=== PATIENT | male | born 1955 | race Caucasian/White ===

== ENCOUNTER 2021-03-18 13:12 | Inpatient (IN) | payer MEDICARE, OTHER, SELFPAY ==
[2021-03-18] VITALS (16 sets, daily range): BP systolic 118–150; BP diastolic 73–88; PULSE 74–95; RESP 14–28; TEMP 36.6–37.3; O2SAT 92–100; BMI 30.7; BMI 32.1
--- NOTE | 2021-03-18 13:40 | ED.VIS.FALL ---
HPI HPI - Fall History of Present Illness Chief Complaint: Fall Informant: patient Narrative Narrative: Planing of right hip pain. He was playing [employer]. He turned to the right and his left leg slipped out from under him. He landed directly on his right hip. He states he did not hit his head. He is not on blood thinners. He could not get up because of the pain. He states the only area that hurts is his right hip. Nothing else is sore on him. He has never had surgery or problems there. Motion makes it worse and rest makes it better. He has not yet gotten anything for pain but would like something. [facility] Medical History Diabetes High cholesterol Hypertension Shoulder fracture Home Medications amlodipine 10 mg PO DAILY 03/18/21 [History Last Taken 03/18/21] cholecalciferol (vitamin D3) [Vitamin D3] 175 mcg PO DAILY 03/18/21 [History Last Taken 03/18/21] dapagliflozin [Farxiga] 10 mg PO DAILY 03/18/21 [History Last Taken 03/18/21] diphenhydramine HCl 50 mg PO QHS 03/18/21 [History Last Taken 03/17/21] dulaglutide [Trulicity] 0.75 mg SUBCUT QWEEK 03/18/21 [History Last Taken 03/18/21] fenofibrate 160 mg PO DAILY 03/18/21 [History Last Taken 03/18/21] glipizide 5 mg PO BID 03/18/21 [History Last Taken 03/18/21] metformin 1,000 mg PO BID 03/18/21 [History Last Taken 03/18/21] niacin 500 mg PO QHS 03/18/21 [History Last Taken 03/17/21] omega-3 fatty acids [Fish Oil] 1,000 mg PO BID 03/18/21 [History Last Taken 03/18/21] pioglitazone 30 mg PO DAILY 03/18/21 [History Last Taken 03/18/21] prasterone (dhea)-calcium carb [DHEA] 0.5 tab PO DAILY 03/18/21 [History Last Taken 03/18/21] ramipril 10 mg PO DAILY 03/18/21 [History Last Taken 03/18/21] simvastatin 20 mg PO DAILY 03/18/21 [History Last Taken 03/18/21] sitagliptin [Januvia] 100 mg PO DAILY 03/18/21 [History Last Taken 03/18/21] Allergy/AdvReac Type Severity Reaction Status Date / Time No Known Allergies Allergy Verified 03/18/21 13:27 Family History Mother Cancer Hx breast CA. Father Heart disease CHF (congestive heart failure) Valvular heart disease Surgical History H/O rotator cuff surgery Social History household members: spouse Smoking Status: Former smoker how long ago did patient quit smoking: Quit 10 years prior, smoked 1/3 ppd since teen. alcohol intake: current alcohol intake frequency: a few times a month substance use type: marijuana ROS ROS ED Constitutional Constitutional ED: Denies fever(s) Eyes Eyes: Denies blurry vision or change in vision ENT ENT ED: Reports other Details: No facial or head injury. Cardiovascular Cardiovascular: Denies chest pain or palpitations Respiratory/Chest Respiratory/Chest: Denies dyspnea Gastrointestinal Gastrointestinal: Denies nausea or vomiting Musculoskeletal Musculoskeletal: Reports other Details: See history of present illness. ; Denies back pain or neck pain Integumentary Denies rash Neurologic Neurologic: Denies headache(s), paresthesias or weakness Endocrine Endocrinology: Denies polydipsia or polyuria Hematologic/Lymphatic Hematologic/Lymphatic: Denies easy bleeding or easy bruising Allergic/Immunologic Allergic/Immunologic ED: Denies mouth swelling or urticaria EXAM Physical Exam Const Vital Signs: 03/18/21 13:13 03/18/21 13:26 03/18/21 14:34 Temperature 98 F Temperature Source Temporal Pulse Rate 95 Respiratory Rate 20 H Respiratory Effort Normal Non-Labored Blood Pressure 126/76 H Blood Pressure Mean 92 Pulse Ox 92 Oxygen Delivery Method Room Air Nasal Cannula Oxygen Flow Rate (L/min) 2 03/18/21 14:54 03/18/21 15:16 03/18/21 15:36 Temperature Temperature Source Pulse Rate 81 75 74 Respiratory Rate 28 H 19 H 16 Respiratory Effort Blood Pressure 150/73 H 118/88 H Blood Pressure Mean 98 98 Pulse Ox 95 98 98 Oxygen Delivery Method Nasal Cannula Nasal Cannula Nasal Cannula Oxygen Flow Rate (L/min) 2 5 5 Positive well nourished and well developed General Appearance ED: well developed and NAD HEENT Reports normocephalic atraumatic; Negative for contusion Eyes PERRL and EOMs intact bilaterally Neck no lymphadenopathy and supple General: Negative for tenderness Chest Wall inspection of chest normal and palpation of chest normal Resp normal respiratory effort and clear to auscultation bilaterally Cardio regular rate and regular rhythm GI non-tender and non-distended Back/Spine no CVA tenderness Extremity Extremity Narrative: Patient's right leg is up on a pillow. Motion does cause pain in the right hip/right groin area. He has some tenderness there. No gross rotational deformity. Because of the knee is propped up, it is hard to assess for shortening. Distal pulses sensation are normal. No tenderness lower in the thigh knee leg or foot. Neuro oriented x3 Sensorium / Orientation: alert Psych mental status grossly normal Skin Lesions: no lesions Rashes: no rashes Trauma: Negative for abrasion or laceration MDM MDM MDM Narrative Medical decision making narrative: Patient had his x-ray done. I had not yet looked at this film. I was urgently called in the room. Patient had stopped breathing and lost pulse. He had turned blue. He was a bit diaphoretic. CPR was done for a brief period of time of approximately 30 seconds. We noticed that he was having motion come back. We stop CPR. At that point, he had a pulse. Blood pressure was 90 but then rechecked and was up to 140. He states he was feeling okay. He does realize that he went out for short period of time. This did occur after morphine. He has never had morphine before. He also did get Zofran. He also started Trulicity for the first time this morning. We checked his blood glucose and it was in the 90s. Most likely, the patient had a reaction with morphine that caused shallow breathing low blood pressure and then the transient arrest that we saw. However, at this time he will be kept so on the monitor, we will do EKG blood work troponin. He will be reassessed again. Patient had a a second episode of this. It was the same process. His heart rate was found to bradycardia down and then have a long sinus pause. CPR was transiently done again for about 20 seconds. His heart rate came back. He woke up rapidly. His blood pressure is back to normal. He received Narcan. He is also received IV fluids. He has now been stable for quite some time. I discussed the case with cardiology, Dr. Tipton. He feels that this is likely a combination of dehydration, morphine and pain causing a very significant vagal event. This does fit the clinical picture of Burrell scenario. We have reevaluated the patient multiple times. He has no abdominal pain back pain or flank pain. No trouble breathing. He has excellent pulses. He is not developing swelling or bruising. I would like to get a CT scan of his abdomen pelvis just to make sure were not seeing any surprises. But I want him to stay in the department for a short time to make sure he is stable for a while. I did discuss case with the hospitalist who is also seen him. At this point we will get him over to CT. So far his CBC coag studies troponin are negative. Magnesium is normal. Electrolytes are normal other than signs of some elevated creatinine that might be mild dehydration. Got back CT of abdomen pelvis. There is no sign of bony or hip acute process. There are some arthritic changes. There was a focal area of small bowel loop prominence with a local area of narrowing or stone seen. This could correlate with intussusception. I went back and talked to the patient. He has absolutely 0 abdominal pain he is wide awake and alert. He has no abdominal tenderness. He has no symptoms at all anywhere in the area of that finding on CT. His pain is in the proximal thigh just below the inguinal ligament on the right. If he moves it hurts. If he puts a little gentle pressure on it it actually feels better. This seems to be myofascial in origin. It seems close to rectus femorris. Lab Data Attestation: I reviewed the patient's lab results. Labs: Laboratory Results - last 24 hr 03/18/21 13:20 Blood Type A POSITIVE Antibody Screen NEGATIVE Radiography Diagnostic Testing: Clinical Impression(s) from Imaging Studies Hip/Pelvis X-Ray 03/18/21 13:50 IMPRESSION: Degenerative changes, no acute osseous abnormality seen. Electronically Signed: Andrea Chaparro MD at 14:08 EST Tel , Service support , Chest X-Ray 03/18/21 14:50 EKG Initial EKG: Comments: EKG done status post arrest showing a normal sinus rhythm without ectopy. No acute ST elevation or depression. Isolated T wave inversion in lead III which is normal variant. CO interval QRS duration and QTc are normal. Critical Care Time Critical Care Time: Yes Critical care time (excluding procedures): 30-74 minutes, Discussing w/Patient &/or Family/Lubricating Specialist, Discussing w/Consultants, Arranging Admission or Transfer, Performing Direct Patient Care at Bedside and - (Direct CPR by provider, multiple reassessments, change in therapy, consultations, charting, 48 minutes CCT) Discharge Plan Dx/Rx/DC Orders Clinical Impression: Fall from slipping, Right groin pain, Bradycardic cardiac arrest Disposition Disposition: Acute Care Hospital [facility] Discharge Date/Time: 03/18/21 18:09
[2021-03-18 13:46] LABS: Bedside Glucose 154 mg/dL (70-110)
[2021-03-18] MEDS: Ondansetron 4 MG/2 ML Vial IV ×2 (13:46→15:31)
[2021-03-18] MEDS: Morphine 4 MG/ML Syringe IV (13:46)
--- NOTE | 2021-03-18 13:50 | RAD_ITS ---
INDICATION: trauma EXAMINATION/TECHNIQUE: X-RAY - RIGHT XR Hip Unilateral with Pelvis when performed; 2-3 Views 3 VIEWS COMPARISON: None. FINDINGS: SOFT TISSUES: No soft tissue swelling or gas. No radiopaque foreign body. BONES/JOINTS: No acute fracture or subluxation.. Unremarkable alignment. Mild degenerative changes are seen in the hip joints, prominent degenerative changes visualized at the lumbosacral junction. No sclerotic or destructive changes observed. RAD/HIP, UNI W/ Pelvis 2-3 Views IMPRESSION: Degenerative changes, no acute osseous abnormality seen. Electronically Signed: Andrea Chaparro MD at 14:08 EST Tel , Service support ,
--- NOTE | 2021-03-18 14:26 | ED.RN ---
PT WENT UNRESPONSIVE AT 1423PT WAS APNEIC, NO PULSE, COMPRESSIONS STARTED. DR. WYNN AT BEDSIDE. PT WOKE UP AT 1424. PT NOW A+0X3 DIAPHORETIC. BG 97. PT SR RHYTHM ON THE MONITOR HR 77, RR 20, SPO2 97% 4LNC, BP 143/77.
--- NOTE | 2021-03-18 14:29 | EKG12_ITS ---
Test Reason : NO PULSE Blood Pressure : / mmHG Vent. Rate : 074 BPM Atrial Rate : 074 BPM P-R Int : 148 ms QRS Dur : 092 ms QT Int : 400 ms P-R-T Axes : 058 -16 024 degrees QTc Int : 444 ms Normal sinus rhythm Normal ECG Confirmed by SHRUTHI DUNCAN, MILLIE ([id number]), industrial editor ERASMO MANCIA ([id number]) on 03/24/2021 10:23:51 AM Referred By: BK Confirmed By:MILLIE HAWKINS MD
[2021-03-18 14:30] LABS: Bedside Glucose 97 mg/dL (70-110)
--- NOTE | 2021-03-18 14:46 | ED.RN ---
AT 1445 PT LAID FLAT FOR XRAY, PT WENT BRADYCARDIC IN 30'S PALE AND DIAPHORETIC AGAIN, PT ASYSTOLE ON MONITOR, COMPRESSIONS STARTED. DR. WYNN AT BEDSIDE. PT WOKE UP AGAIN, NOW A+OX3. BP 150/73, HR 91, RR 26, 98%. 2MG NARCAN GIVEN THROUGH LEFT AC BY Joseph ELLISON RN.
[2021-03-18 14:47] LABS: Absolute Lymphocyte Count 0.61 X10^3/uL (0.83-4.51); Absolute Neutrophil Count 4.4 X10^3/uL (2.0-7.7); Basophil# 0.02 X10^3/uL; Basophil% 0.4 % (0-1); Eosinophil# 0.01 X10^3/uL; Eosinophils% 0.2 % (0-5); Hematocrit 43.6 % (40-54); Lymphocyte # 0.61 X10^3/ul (0.83-4.51); Lymphocyte % 11.1 % (19-41); Mean Corp Hgb Conc 34.4 g/dL (32-36); Mean Corpuscular Hgb 30.6 pg (27.0-32.0); Mean Platelet Vol. 10.1 fl (6.2-12.0); Monocyte# 0.46 X10^3/uL; Monocyte% 8.4 % (0-10); NRBC Flagged by Analyzer 0 % (0-5); Neutrophil # 4.36 X10^3/uL (2.7-7.7); Neutrophil % 79.4 % (47-70); Platelet Count 203 K/mm3 (150-450); RBC Distribution Width CV 12.8 % (11.6-14.6); RBC Distribution Width SD 42.1 fl (35.1-43.9); White Blood Count 5.5 K/mm3 (4.4-11.0)
[2021-03-18] MEDS: Naloxone 2 MG/2 ML Syringe IV (14:49)
--- NOTE | 2021-03-18 14:50 | RAD_ITS ---
INDICATION: chest pain EXAMINATION/TECHNIQUE: X-RAY - XR Chest 1 View COMPARISON: None. FINDINGS: LINES/DEVICES: None. LUNGS: Peribronchial cuffing and mild bilateral hilar prominence is visualized, prominence of the bronchovascular markings is visualized but no evidence of focal lung infiltrate or consolidation. No evidence of pneumothorax or pleural effusion is seen. MEDIASTINUM AND CARDIOVASCULAR STRUCTURES: Cardiac silhouette not enlarged. Central airways and mediastinal contour are unremarkable. BONES AND SOFT TISSUES: Unremarkable. IMPRESSION: Peribronchial cuffing and mild bronchovascular prominence but no evidence of focal lung opacification of acute cardiopulmonary disease. Electronically Signed: Andrea Chaparro MD at 15:19 EST Tel , Service support , RAD/Chest 1 View (Portable)
--- NOTE | 2021-03-18 14:55 | CM.ED ---
SW Note Referral Source : Code Blue Referral Reason: Code Blue SW responded to Code Blue 2x. Provided emotional support to Lisa. No concerns or issues voiced. SW remains available if needs arise. Plan: Emotional support Haydee COHEN
[2021-03-18 15:03] LABS: Anion Gap 9 (5-15); BUN 15 mg/dL (7-18); BUN/Creat Ratio 9.6 RATIO (10-20); Calcium,Total 9.9 mg/dL (8.5-10.1); Chloride 106 mmol/L (98-107); Creatinine, Serum 1.56 mg/dL (0.70-1.30); EST Glomerular Filtration Rate 48 mL/min (>60); Est Glom Filt Rate - Afr Amer 58 mL/min (>60); Estimated Creatinine Clearance 43.55 ml/min; Glucose 272 mg/dL (74-106); Magnesium 1.9 mg/dL (1.6-2.6); Potassium 4.4 mmol/L (3.5-5.1); Sodium Level 140 mmol/L (136-145); Troponin-I HS 6 pg/mL (3.0-78.0)
--- NOTE | 2021-03-18 15:04 | CHAPLAIN ---
Type of Pastoral Visit ___ Initial Visit ___ Follow-up Visit ___ On-call Visit ___ General Patient Visit ___ Spiritual Assessment ___ Family Conference ___ Bereavement ___ Rapid Response _x__ Code Blue ___ Other (describe below) Pastoral Care Referral From ___ Patient ___ Family ___ Nurse ___ Physician ___ Automotive Project Engineer ___ Vb Net Developer _x__ Other (describe below) Sacrament/Intervention _x__ Active listening ___ Anointing ___ Muslim ___ Bereavement ___ Communion ___ Brittani exploration ___ ___ Life review ___ Prayer ___ Reconciliation ___ Sacrament of Sick _x__ Supportive presence ___ Wedding ___ Other (describe below) Pastoral Comments responded two times to two different code blue announcements for this same patient; first time the patient was already alert and talking; entered room to offer support to patient and his spouse; pt acknowledged pain from an injury but was responsive to questions; spouse was at bedside and did not seek extra support at that time; the second code call came soon after and a second trip to ED discovered patient had again revived and was been attending to by medical team; spouse again at bedside; offer of support to staff
--- NOTE | 2021-03-18 15:31 | NURSING ---
NO OLD EKGS
[2021-03-18] MEDS: 0.9% Normal Saline 1,000 ML 999 ML IV (15:32)
--- NOTE | 2021-03-18 15:42 | HP.PCM.HOS_ITS ---
HPI - General General Date of Admission: 03/18/21 Date of Service: 03/18/21 Chief Complaint: Fall during racketball, Cardiac arrest in the ED. HPI Narrative The patient is a 65 y/o M w/ PMHx: Obesity, HTN, HLD, Diabetes mellitus type II who presents to the [facility] ED on 03/18/21 with history of noting to have been stepping to the right and slipped falling onto his right hip while he was playing racketball with ongoing hip pain following prompting ED evaluation. He noted intractable 10 out of 10 severe sharp pain to the right groin and upper thigh region with any movement of the right lower extremity with intermittent improvement and recurrent onset with any attempted movement or palpation. Work- up in the ED included initially T 98, heart rate 95, BP 126/76, respiratory rate 20, 92% on room air with transient reported cardiac arrest with most recent vital signs heart rate 75, BP 118/88, respiratory rate 19, 98% on 5 L nasal cannula, CBC with WBC 5.5, hemoglobin 15, platelet 203 with lymphopenia, BMP with BUN/creatinine 15/1.56, glucose 272, magnesium 1.9, high-sensitivity cardiac troponin 6, chest x-ray with peribronchial cuffing and mild perivascular prominence but no evidence of focal lung opacification or acute cardiopulmonary findings, plain film of the right hip and pelvis with degenerative changes with no acute osseous abnormality, EKG with sinus rhythm with no acute evidence of ischemia. ED physician had been urgently called into the room secondary to patient loss of pulse and hypoxia noted to turn blue with diaphoresis with initiation of CPR for approximately 30 seconds with spontaneous movement with pulse at that point with blood pressure noted to be systolics in the 90 however upon recheck systolic was up to 140 and reported that he had been feeling fine and was unaware of these events. Patient had recently received morphine prior to this and had never received it prior. He also notes that he recently started Trulicity for the first time on day of presentation. Telemetry with onset bradycardia with eventual significant pause prior to cardiopulmonary arrest. ED discussed case with Cardiology who noted likely severe vagal episode exacerbated by the morphine. Patient was given a dose of narcan. He then had a second episode of worsening bradycardia and pause again following his initial event and only 20-30 seconds of CPR was necessary with resolution following. He has had no marked bradycardia since. [facility] Medical History (Updated 03/18/21 @ 18:[address] Zeynep Correia MD) Diabetes High cholesterol Hypertension Shoulder fracture Home Medications amlodipine 10 mg PO DAILY 03/18/21 [History Last Taken Unknown] cholecalciferol (vitamin D3) [Vitamin D3] 175 mcg PO DAILY 03/18/21 [History Last Taken Unknown] dapagliflozin [Farxiga] 10 mg PO DAILY 03/18/21 [History Last Taken Unknown] diphenhydramine HCl 25 mg PO BID 03/18/21 [History Last Taken Unknown] dulaglutide [Trulicity] 0.75 mg SUBCUT QWEEK 03/18/21 [History Last Taken Unknown] fenofibrate 160 mg PO DAILY 03/18/21 [History Last Taken Unknown] glipizide 5 mg PO BID 03/18/21 [History Last Taken Unknown] metformin 1,000 mg PO BID 03/18/21 [History Last Taken Unknown] niacin 500 mg PO DAILY 03/18/21 [History Last Taken Unknown] omega-3 fatty acids [Fish Oil] 1,000 mg PO BID 03/18/21 [History Last Taken Unknown] pioglitazone 30 mg PO DAILY 03/18/21 [History Last Taken Unknown] prasterone (dhea)-calcium carb [DHEA] 0.5 tab PO DAILY 03/18/21 [History Last Taken Unknown] ramipril 10 mg PO DAILY 03/18/21 [History Last Taken Unknown] simvastatin 20 mg PO DAILY 03/18/21 [History Last Taken Unknown] sitagliptin [Januvia] 100 mg PO DAILY 03/18/21 [History Last Taken Unknown] Allergy/AdvReac Type Severity Reaction Status Date / Time No Known Allergies Allergy Verified 03/18/21 13:27 Family History (Updated 03/18/21 @ 18:[address] Zeynep Correia MD) Mother Cancer Hx breast CA. Father Heart disease CHF (congestive heart failure) Valvular heart disease Surgical History (Updated 03/18/21 @ 18:[address] Zeynep Correia MD) H/O rotator cuff surgery Social History (Updated 03/18/21 @ 18:[address] Zeynep Correia MD) household members: spouse Smoking Status: Former smoker how long ago did patient quit smoking: Quit 10 years prior, smoked 1/3 ppd since teen. alcohol intake: current alcohol intake frequency: a few times a month substance use type: marijuana ROS ROS Narrative Admission Review of Systems: CONSTITUTIONAL: No weight loss, fever, chills, + weakness or fatigue. HEENT: Eyes: No visual loss, blurred vision, double vision or yellow sclerae. Ears, Nose, Throat: No hearing loss, sneezing, congestion, runny nose or sore throat. SKIN: No rash or itching, lesions, wounds. CARDIOVASCULAR: No chest pain, chest pressure or chest discomfort, palpitations, edema, orthopnea, syncopal events. RESPIRATORY: No shortness of breath, cough or sputum, wheezing, hemoptysis. GASTROINTESTINAL: No anorexia, nausea, vomiting or diarrhea, abdominal pain, melena, BRBPR. GENITOURINARY: No dysuria, frequency, urgency or retention. NEUROLOGICAL: No headache, dizziness, syncope, paralysis, ataxia, numbness or tingling in the extremities, focal weakness, change in bowel or bladder control, seizure. MUSCULOSKELETAL: + muscle, back pain, joint pain or stiffness. HEMATOLOGIC: No anemia, bleeding or bruising. LYMPHATICS: No enlarged nodes. No history of splenectomy. PSYCHIATRIC: No history of depression or anxiety. ENDOCRINOLOGIC: No reports of sweating, cold or heat intolerance. No polyuria or polydipsia. ALLERGIES: No history of asthma, hives, eczema or rhinitis. Vital Signs Vital Signs Vital Signs: 03/18/21 13:13 03/18/21 13:26 03/18/21 14:34 Temperature 98 F Temperature Source Temporal Pulse Rate 95 Respiratory Rate 20 H Respiratory Effort Normal Non-Labored Blood Pressure 126/76 H Blood Pressure Mean 92 Pulse Ox 92 Oxygen Delivery Method Room Air Nasal Cannula Oxygen Flow Rate (L/min) 2 03/18/21 14:54 03/18/21 15:16 03/18/21 15:36 Temperature Temperature Source Pulse Rate 81 75 74 Respiratory Rate 28 H 19 H 16 Respiratory Effort Blood Pressure 150/73 H 118/88 H Blood Pressure Mean 98 98 Pulse Ox 95 98 98 Oxygen Delivery Method Nasal Cannula Nasal Cannula Nasal Cannula Oxygen Flow Rate (L/min) 2 5 5 Weight Weight: 195 lb 15.855 oz Body Mass Index (BMI) 30.7 Physical Exam Narrative Physical Examination: General: Awake, alert, oriented x 3 and cooperative, laying in the ED bed, notes ongoing pain to the right groin with any movements, random spasms also present. Skin: Normal color, normal turgor, no icterus, no cyanosis. HEENT: AT/NC, EOMI, PERRLA, moderately dry MM, no carotid bruits or JVD noted. Lungs: Diminished, greater bases, appropriate effort, no rales, ronchi or wheezing. Heart: Regular rate and rhythm; no gallop, rub audible. Abdomen: Soft, obese, NTTP, ND, distant mildly hyperactive BS, no HSM. Extremities: No cyanosis, clubbing, or edema. Significant pain with any movement to the right lower extremity or palpation to the right groin or upper quadricep region. Neurological: Patient awake, alert, oriented as noted, cognitive function intact; pupils equally reactive to light and accommodation, cranial nerves II- XII grossly normal, moving all 4 extremities except extremely limited right lower extremity movement secondary to pain elicited, unable to discern any focal deficits, strength accordingly severely global decreased. Psychiatric: Affect appears fatigued uncomfortable intermittently, no acute evidence of depressive or anxiety feelings. Results Lab / Micro Data Result Diagrams: 03/18/21 13:20 03/18/21 13:20 Labs: Laboratory Results - last 24 hr 03/18/21 13:20: WBC 5.5, RBC 4.90, Hgb 15.0, Hct 43.6, MCV 89.0, MCH 30.6, MCHC 34.4, RDW Std Deviation 42.1, RDW Coeff of Carri 12.8, Plt Count 203, MPV 10.1, Immature Gran % (Auto) 0.500, Neut % (Auto) 79.4 H, Lymph % (Auto) 11.1 L, [place] % (Auto) 8.4, Eos % (Auto) 0.2, Baso % (Auto) 0.4, Absolute Neuts (auto) 4.4, Absolute Lymphs (auto) 0.61 L, Nucleated RBC % 0 03/18/21 13:20: Sodium 140, Potassium 4.4, Chloride 106, Carbon Dioxide 25.0, Anion Gap 9, BUN 15, Creatinine 1.56 H, Estim Creat Clear Calc 43.55, Est GFR (MDRD) Af Amer 58 L, Est GFR (MDRD) Non-Af 48 L, BUN/Creatinine Ratio 9.6 L, Glucose 272 H, Calcium 9.9, Magnesium 1.9, Troponin I High Sens 6 03/18/21 13:40: POC Glucose 154 H 03/18/21 14:26: POC Glucose 97 Radiology Impression Hip/Pelvis X-Ray 03/18/21 13:50 IMPRESSION: Degenerative changes, no acute osseous abnormality seen. Electronically Signed: Andrea Chaparro MD at 14:08 EST Tel , Service support , Chest X-Ray 03/18/21 14:50 Assessment & Plan Assessment/Plan (1) Bradycardic cardiac arrest: (2) Right groin pain: (3) Fall from slipping: QUALIFIERS: Encounter type: initial encounter Qualified Code(s): W01.0XXA - Fall on same level from slipping, tripping and stumbling without subsequent striking against object, initial encounter PLAN: The patient is a 65 y/o M w/ PMHx: Obesity, HTN, HLD, Diabetes mellitus type II who presents to the [facility] ED on 03/18/21 with history of noting to have been stepping to the right and slipped falling onto his right hip while he was playing racketball with ongoing hip pain following prompting ED evaluation. He noted intractable 10 out of 10 severe sharp pain to the right gr oin and upper thigh region with any movement of the right lower extremity with intermittent improvement and recurrent onset with any attempted movement or palpation. #1. Transient cardiopulmonary arrest possibly secondary to morphine administration with vasovagal event: EKG in ED w/ sinus rhythm with no acute evidence of ischemia, chest x-ray with peribronchial cuffing and mild perivascular prominence but no evidence of focal lung opacification or acute cardiopulmonary findings, trop 6.0. Will admit to PCU, maintain on a monitored bed, continue serial cardiac enzymes and EKGs. Obtain magnesium level upon admission. Will maintain on chemoprophylactic Lovenox however if enzymes does increase will transition to a drip. Continue medical management. ECHO requested. Cardiology consulted per the ED, will continue. ASA, NG, morphine. #2. Mechanical fall with intractable right groin and upper thigh/quadricep pain: CT abdomen and pelvis no obvious findings and ED physician to discuss requested to include hip and pelvis in the imaging with no obvious findings, surgery as noted did not think this was related at all with any of the incidental findings however they were unable to specifically view exactly what the radiologist had read and felt this was potentially an over read. Will dis cuss case with orthopedic surgery and have them evaluate the patient given ongoing and pain from mechanical fall. Given patient significant events following morphine administration will avoid IV narcotic therapy at this time but will have oral option with [place] available #3. Incidental Focal prominent loops of small bowel with wall thickening and circumferential narrowing: CT A/P reviewed with General surgery, no obvious findings consistent with read, per their recommendation will need repeat CT of the abdomen and pelvis with oral and IV contrast in the next 24 to 48 hours prior to discharge to assure there is no intra-abdominal findings especially given his asymptomatic abdominal presentation. #4. Incidental Subtle soft tissue irregularity base of the urinary bladder: Denies any urinary type symptoms, urinalysis requested and bladder ultrasound also requested to be cautious. #5. Incidental abnormal chest x-ray: Chest x-ray with peribronchial cuffing and mild perivascular prominence with no focal lung opacification or acute cardiopulmonary findings, potentially in the setting of short transient cardiopulmonary arrest, BNP has been requested. #6. Possible CKD stage III unclear subtype versus LILLIE versus Acute renal insufficiency: Patient recently fasting for labs on day of presentation, routine labs with his primary care physician and reportedly playing racquetball with poor oral intake therefore certainly could be component renal insufficiency, unclear recently as no prior labs, admission BUN/Cr 15/1.56. Will hydrate, hold nephrotoxic medications and repeat chemistry in AM. #7. Chronic lumbar back pain: CT abdomen pelvis with notable multilevel degenerative changes in the lumbar spine with circumferential disc bulging with severe narrowing of the neural foramina, encouraged outpatient follow-up with orthospine versus neurosurgery especially given his chronic self-medication with cannabis. #8. Hypertension: Continue home regimen including amlodipine, ramipril however low threshold to hold LUIS inhibitor if renal function worsens as unclear if insufficiency or chronic disease, PRN hydralazine. #9. Hyperlipidemia: Continue home statin regimen. AM FLP. #10. Diabetes mellitus type II: Hold oral home regimen, ADA diet, accu checks w/ ISS. #11. Obesity: Weight loss and lifestyle changes encouraged. #12. DVT prophylaxis: SCDs, Lovenox. #13. CODE STATUS: Full code. Charges/Coding Visit Charges Inpatient E&M: 00481 Init Hosp L3
--- NOTE | 2021-03-18 15:56 | NURSING ---
PCU [facility]
--- NOTE | 2021-03-18 16:06 | NURSING ---
CALLED [facility], ETA IS 45 TO 60 MIN
--- NOTE | 2021-03-18 16:13 | CT_ITS ---
INDICATION: right pelvis pain, Include hip in images EXAMINATION: CT ABDOMEN AND PELVIS WITH CONTRAST - CT Abdomen And Pelvis W/ Contrast Injection TECHNIQUE: Helically acquired images were obtained of the abdomen and pelvis following IV contrast. A radiation dose optimization technique was used for this scan. IV Contrast dosage and agent: 100 mL of [id number]. Oral contrast: None. COMPARISON: None. FINDINGS: LOWER CHEST: No focal lung infiltrate or consolidation. No cardiomegaly or pericardial effusion. LIVER: Homogeneous. No focal mass. GALLBLADDER AND BILIARY TREE: No calcified gallstones. No gallbladder distension or wall edema. No intra- or extrahepatic biliary ductal dilation. PANCREAS: No focal cystic or solid mass. SPLEEN: Normal size without focal cystic or solid mass. ADRENAL GLANDS: No nodules. KIDNEYS AND URETERS: Normal renal size and position. No hydronephrosis. Cortical and parapelvic cysts are visualized bilaterally. PERITONEUM: No ascites or free air. No other fluid collection. BOWEL: No evidence of acute appendicitis. No stomach distension. No focal inflammatory change. Fluid-filled loops of small bowel visualized to the level of a focal area where there is mild wall thickening, this is best visualized on coronal series 601 image 28, sagittal series 602 image 76 and axial series 2 image 86, the differential diagnosis would include intussusception. Scattered diverticular disease is visualized but no evidence of acute diverticulitis is seen. LYMPH NODES: No enlarged mesenteric or retroperitoneal lymph nodes. VESSELS: Aorta is non-dilated. URINARY BLADDER: Subtle soft tissue irregularity visualized in the base of the urinary bladder seen on axial series 2 image 113 and sagittal series 602 image 18. REPRODUCTIVE ORGANS: Mild prominence of the prostate gland is seen. No pelvic masses. ABDOMINAL WALL: No discrete abdominal or pelvic wall hernia. BONES: No lytic or blastic abnormality. Multilevel degenerative changes of the lumbar spine visualized, circumferential disc bulges with severe narrowing of the neural foramina visualized at L5-S1, L4-L5, L3-L4 and to lesser extent the L2-L3 and L1-L2. Degenerative changes visualized in the hip joints, no acute osseous abnormality is visualized in the hip joints. CT/Abdomen/Pelvis W IV Cont ONLY IMPRESSION: Focal prominent loops of small bowel visualized at the level of a transition point where there is wall thickening with appearance of circumferential narrowing/stone + seen in the anterior lower abdomen, would recommend clinical correlation for intussusception and if clinically indicated further evaluation with a small bowel follow-through. Subtle soft tissue irregularity visualized in the base of the urinary bladder this could represent the prominence of the prostate gland or a bladder base mass would recommend further evaluation with ultrasound. The appendix is visualized and is unremarkable. The gallbladder is slightly prominent but no evidence of wall thickening, no evidence of pericholecystic stranding. Diverticular disease but no evidence of acute diverticulitis. Extensive degenerative bone changes visualized with severe narrowing of the lumbar neural foramina visualized at multiple levels. Degenerative changes visualized in the hip joints, no acute osseous abnormality is visualized in the hip joints. Electronically Signed: Andrea Chaparro MD at 16:59 EST Tel , Service support ,
[2021-03-18 16:15] LABS: International Normalized Ratio 1.1; Partial Thromboplast Time 23.8 Seconds (24.1-36.2); Prothrombin Time (Protime)PT. 13.5 SECONDS (11.7-14.9)
--- NOTE | 2021-03-18 18:31 | US_ITS ---
INDICATION: Abnormal bladder findings on CT EXAMINATION: Ultrasound US Kidney(s) complete (eg, kidneys and bladder) TECHNIQUE: Pelaez scale and color doppler images were obtained of the kidneys. COMPARISON: CT scan of the pelvis obtained 03/18/2021. FINDINGS: RIGHT KIDNEY: The right kidney demonstrates unremarkable echogenicity, unremarkable vascularity, unremarkable size, shape and configuration no evidence of solid renal masses seen. A simple cyst is visualized measuring 1.4 x 1.3 x 1.3 cm. No evidence of hydronephrosis. No evidence of hyperechoic foci to suggest stones. The right kidney measures 11.5 x 6.1 x 5.0 cm. The right renal cortex measures 1.2 cm. LEFT KIDNEY: The left kidney demonstrates unremarkable echogenicity, unremarkable vascularity, unremarkable size, shape and configuration no evidence of solid renal masses seen. Multiple simple cysts visualized the largest of which measures 2.3 x 1.8 cm. No evidence of hydronephrosis. No evidence of hyperechoic foci to suggest stones. The left kidney measures 11.5 x 5.3 x 5.8 cm. The left renal cortex measures 1.5 cm. URINARY BLADDER: There is a soft tissue irregularity visualized at the base of the urinary bladder that appears to be contiguous with the prostate gland otherwise no evidence of bladder masses seen, the wall of the urinary bladder is unremarkable. The prostate gland is prominent in size and demonstrates heterogeneous echogenicity measuring approximately 5.1 cm in transverse diameter. No evidence of bladder stones seen. Distended volume of the urinary bladder is 326.04 mL. US/Kidney and Bladder IMPRESSION: Soft tissue density in the base of the urinary bladder that could represent protrusion of the prostate gland, recommend urology consultation. Heterogeneous echogenicity of the prostate gland. Electronically Signed: Andrea Chaparro MD at 8:40 EST Tel , Service support ,
--- NOTE | 2021-03-18 18:31 | ECHOD_ITS ---
Reason For Study: CARDIAC ARREST Procedure This was a 2D Doppler, Color Flow transthoracic echocardiogram. Exam performed with patient in supine position due to his inability to roll onto side. Exam performed portable in patient room. Left Ventricle Normal LV size. Left ventricular systolic function is normal. The estimated ejection fraction is 60 %. Stage 1 diastolic dysfunction. No regional wall motion abnormalities noted. Right Ventricle Normal RV size. Normal systolic function. Atria Normal left atrium. Normal right atrium. Mitral Valve Normal mitral valve. Tricuspid Valve Normal tricuspid valve. Aortic Valve Normal aortic valve. Trisinus/trileaflet aortic valve. Pulmonic Valve Normal pulmonic valve. Great Vessels Normal aortic root. The pulmonary artery is normal size. Normal inferior vena cava. Pericardium/Pleural No pericardial effusion. MMode/2D Measurements & Calculations LVIDd: 5.0 cm IVSd: 1.0 cm Ao root diam: 3.3 cm LVIDs: 3.4 cm LVPWd: 0.98 cm RVDd: 3.1 cm FS: 32.2 % LAV(MOD-bp): 27.8 ml LVAd ap4: 33.2 cm2 SV(MOD-sp4): 68.6 ml LAV(MOD-bp) Indexed: 13.6 ml/m2 LVLd ap4: 8.3 cm LAV(MOD-sp2): 29.1 ml EDV(MOD-sp4): 110.0 ml LAV(MOD-sp4): 25.3 ml EDV(sp4-el): 112.5 ml LVAs ap4: 18.8 cm2 LVLs ap4: 7.6 cm ESV(MOD-sp4): 41.4 ml ESV(sp4-el): 39.5 ml EF(MOD-sp4): 62.4 % EF(sp4-el): 64.8 % SV(sp4-el): 72.9 ml LA A4 area: 11.9 cm2 LA dimension(2D): 3.7 cm RA A4 area: 9.5 cm2 Time Measurements MV dec time: 0.25 sec Doppler Measurements & Calculations MV E max benjamin: 78.6 cm/sec Lat Peak E' Benjamin: 11.0 cm/sec Med Peak E' Benjamin: 9.5 cm/sec MV A max benjamin: 92.9 cm/sec E/E' lat: 7.1 E/E' med: 8.3 MV E/A: 0.85 Ao V2 max: 112.5 cm/sec LV V1 max: 112.6 cm/sec PA V2 max: 92.8 cm/sec Ao max P.1 mmHg LV V1 max P.1 mmHg ECHO/Echo Complete Interpretation Summary Normal LV size. Left ventricular systolic function is normal. The estimated ejection fraction is 60 %. Stage 1 diastolic dysfunction. Structurally normal valves. Ordering Physician: Bren^Zeynep^Caroline^^ Referring Physician: TIFFANI LOVETT Performed By: Kimberly Rios RDCS
--- NOTE | 2021-03-18 19:10 | CON.PCM.CA_ITS ---
Assessment & Plan Assessment/Plan (1) Bradycardic cardiac arrest: PLAN: Sinus arrest. The above is likely secondary to a markedly high vagal tone secondary to the pain patient was in. His medications do not suggest any negative chronotropic effect. My recommendation would be for us to monitor him overnight and obtain an echocardiogram. If the above is unremarkable and he has had no further arrhythmias I would not make any changes or any further recommendations and he can be followed up as an outpatient. Thank you for allowing me to participate in the care of your patient. Please don't hesitate to call if any issues arise. HPI Consult Data Date of Consult: 03/18/21 HPI Narrative HPI Narrative: NAPOLEON CLINE, is a 65 M who presents to the emergency room after slipping and falling on his right hip while playing racquetball. He was seen in the emergency room and was noted to be having intractable discomfort. He was given intravenous morphine for pain relief. The patient on trying to move apparently became asystolic and hypoxic with diaphoresis with initiation of CPR for approximately 30 seconds with spontaneous movement with pulse at that point. Patient had another episode of the above. He had been given Trulicity earlier on in the day which was his first dose of this. After this event he was given a dose of Narcan. He is had another episode of worsening bradycardia and pauses requiring further CPR for 20 to 30 seconds. He has apparently been doing well since. High-sensitivity troponin was noted to be normal. EKG done medially post procedure demonstrated sinus rhythm with no evidence of ischemia. Cardiology was called to discuss the case and the patient was admitted to the telemetry care unit. [facility] Medical History Diabetes High cholesterol Hypertension Shoulder fracture Home Medications amlodipine 10 mg PO DAILY 03/18/21 [History Last Taken 03/18/21] cholecalciferol (vitamin D3) [Vitamin D3] 175 mcg PO DAILY 03/18/21 [History Last Taken 03/18/21] dapagliflozin [Farxiga] 10 mg PO DAILY 03/18/21 [History Last Taken 03/18/21] diphenhydramine HCl 25 mg PO QHS 03/18/21 [History Last Taken 03/17/21] dulaglutide [Trulicity] 0.75 mg SUBCUT QWEEK 03/18/21 [History Last Taken 03/18/21] fenofibrate 160 mg PO DAILY 03/18/21 [History Last Taken 03/18/21] glipizide 5 mg PO BID 03/18/21 [History Last Taken 03/18/21] metformin 1,000 mg PO BID 03/18/21 [History Last Taken 03/18/21] niacin 500 mg PO QHS 03/18/21 [History Last Taken 03/17/21] omega-3 fatty acids [Fish Oil] 1,000 mg PO BID 03/18/21 [History Last Taken 03/18/21] pioglitazone 30 mg PO DAILY 03/18/21 [History Last Taken 03/18/21] prasterone (dhea)-calcium carb [DHEA] 0.5 tab PO DAILY 03/18/21 [History Last Taken 03/18/21] ramipril 10 mg PO DAILY 03/18/21 [History Last Taken 03/18/21] simvastatin 20 mg PO DAILY 03/18/21 [History Last Taken 03/18/21] sitagliptin [Januvia] 100 mg PO DAILY 03/18/21 [History Last Taken 03/18/21] Allergy/AdvReac Type Severity Reaction Status Date / Time No Known Allergies Allergy Verified 03/18/21 13:27 Family History Mother Cancer Hx breast CA. Father Heart disease CHF (congestive heart failure) Valvular heart disease Surgical History H/O rotator cuff surgery Social History household members: spouse Smoking Status: Former smoker how long ago did patient quit smoking: Quit 10 years prior, smoked 1/3 ppd since teen. alcohol intake: current alcohol intake frequency: a few times a month substance use type: marijuana ROS Constitutional Constitutional: Denies fever(s) or weight loss Eyes Eyes: Reports systems reviewed and no addt'l complaints, except as documented ENT HEENT: Reports systems reviewed and no addt'l complaints, except as documented Cardiovascular Cardiovascular: Denies chest pain at rest, chest pain with activity, dyspnea at rest, dyspnea on exertion, edema, palpitations or paroxysmal nocturnal dyspnea Respiratory/Chest Respiratory/Chest: Denies dyspnea on exertion, productive cough, shortness of breath at rest or shortness of breath with exertion Gastrointestinal Gastrointestinal: Denies change in bowel habits, nausea, vomiting or weight changes Genitourinary Genitourinary: Denies difficulty urinating Musculoskeletal Musculoskeletal: Denies joint stiffness or muscle weakness Integumentary Integumentary: Denies lesions Neurologic Neurologic: Denies dizziness or syncope Psychiatric Psychiatric: Denies anxiety Endocrine Endocrinology: Denies excessive sweating or fatigue Hematologic/Lymphatic Hematologic/Lymphatic: Denies anemia Allergic/Immunologic Allergic/Immunologic: Denies seasonal rhinorrhea Risk Stratification Risk Stratification Applicable: No Objective Data Vital Signs: Vital Signs Temp Pulse Resp BP Pulse Ox 98.2 F 87 16 136/82 H 100 03/18/21 18:26 03/18/21 18:26 03/18/21 18:26 03/18/21 18:26 03/18/21 18:26 Oxygen Flow Rate (L/min) 3 Oxygen Delivery Method Nasal Cannula Weight: 205 lb 6 oz Body Mass Index (BMI) 32.1 Intake & Output: Intake and Output for Last 24 Hours 03/16/21 03/17/21 03/18/21 23:59 23:59 23:59 Intake Total 1500 / 1500 Balance 1500 / 1500 Lab / Micro Data Result Diagrams: 03/18/21 13:20 03/18/21 13:20 Labs: Laboratory Results - last 24 hr 03/18/21 13:20: WBC 5.5, RBC 4.90, Hgb 15.0, Hct 43.6, MCV 89.0, MCH 30.6, MCHC 34.4, RDW Std Deviation 42.1, RDW Coeff of Carri 12.8, Plt Count 203, MPV 10.1, Immature Gran % (Auto) 0.500, Neut % (Auto) 79.4 H, Lymph % (Auto) 11.1 L, [place] % (Auto) 8.4, Eos % (Auto) 0.2, Baso % (Auto) 0.4, Absolute Neuts (auto) 4.4, Absolute Lymphs (auto) 0.61 L, Nucleated RBC % 0 03/18/21 13:20: Sodium 140, Potassium 4.4, Chloride 106, Carbon Dioxide 25.0, Anion Gap 9, BUN 15, Creatinine 1.56 H, Estim Creat Clear Calc 43.55, Est GFR (MDRD) Af Amer 58 L, Est GFR (MDRD) Non-Af 48 L, BUN/Creatinine Ratio 9.6 L, Glucose 272 H, Calcium 9.9, Magnesium 1.9, Troponin I High Sens 6 03/18/21 13:20: PT 13.5, INR 1.1, APTT 23.8 L 03/18/21 13:20: B-Natriuretic Peptide 14.0 03/18/21 13:40: POC Glucose 154 H 03/18/21 14:26: POC Glucose 97 Micro: Microbiology 03/18/21 16:17 Nasal Secretion SARS-CoV-2 Antigen (Rapid) - Final Cardiology Labs/Tests 03/18/21 13:20: WBC 5.5, RBC 4.90, Hgb 15.0, Hct 43.6, MCV 89.0, MCH 30.6, MCHC 34.4, Plt Count 203, MPV 10.1, Immature Gran % (Auto) 0.500, Neut % (Auto) 79.4 H, Lymph % (Auto) 11.1 L, [place] % (Auto) 8.4, Eos % (Auto) 0.2, Baso % (Auto) 0 .4, Absolute Neuts (auto) 4.4, Nucleated RBC % 0 03/18/21 13:20: Sodium 140, Potassium 4.4, Chloride 106, Carbon Dioxide 25.0, Anion Gap 9, BUN 15, Creatinine 1.56 H, Est GFR (MDRD) Af Amer 58 L, Est GFR (MDRD) Non-Af 48 L, BUN/Creatinine Ratio 9.6 L, Glucose 272 H, Calcium 9.9, Magnesium 1.9 03/18/21 13:20: PT 13.5, INR 1.1, APTT 23.8 L 03/18/21 13:20: B-Natriuretic Peptide 14.0 Rhythm: EKG: ECHO: Stress Test: Cardiac Cath: PCI: CT Surgery: Holter monitor: EPS: PPM: CXR: Chest CT Scan: Radiography Diagnostic Testing: Radiology Impression Hip/Pelvis X-Ray 03/18/21 13:50 IMPRESSION: Degenerative changes, no acute osseous abnormality seen. Electronically Signed: Andrea Chaparro MD at 14:08 EST Tel , Service support , Chest X-Ray 03/18/21 14:50 Abdomen/Pelvis CT 03/18/21 16:13 IMPRESSION: Focal prominent loops of small bowel visualized at the level of a transition point where there is wall thickening with appearance of circumferential narrowing/stone + seen in the anterior lower abdomen, would recommend clinical correlation for intussusception and if clinically indicated further evaluation with a small bowel follow-through. Subtle soft tissue irregularity visualized in the base of the urinary bladder this could represent the prominence of the prostate gland or a bladder base mass would recommend further evaluation with ultrasound. The appendix is visualized and is unremarkable. The gallbladder is slightly prominent but no evidence of wall thickening, no evidence of pericholecystic stranding. Diverticular disease but no evidence of acute diverticulitis. Extensive degenerative bone changes visualized with severe narrowing of the lumbar neural foramina visualized at multiple levels. Degenerative changes visualized in the hip joints, no acute osseous abnormality is visualized in the hip joints. Electronically Signed: Andrea Chaparro MD at 16:59 EST Tel , Service support ,
[2021-03-18 19:36] LABS: Troponin-I HS 12 pg/mL (3.0-78.0)
[2021-03-18] MEDS: HYDROcodone Bitartrate/Apap 5/325 Tablet PO (19:52)
[2021-03-18] MEDS: 0.9% Normal Saline 1,000 ML 125 ML IV (19:52)
[2021-03-18] MEDS: 0.9% Saline Lock 10 ML Syringe IV (19:53)
[2021-03-18 21:16] LABS: Troponin-I HS 12 pg/mL (3.0-78.0)
[2021-03-18 21:38] LABS: Bacteria 0 SEEN /hpf (None Seen); Mucous, Urine 0 SEEN /hpf (<or=2+); Red Blood Cells-Urine 0 SEEN /hpf (0-5); Squamous Epithelial Cells - UA 0 SEEN /hpf (0-5); White Blood Cells 0 SEEN /hpf (0-5)
[2021-03-18 22:01] LABS: Color, Urine Yellow (Yellow); Glucose, Dipstick 1000 mg/dl (Normal); Ketone-Dipstick 50 mg/dl (Negative); Leukocyte Esterase-Dipstick Negative /ul (Negative); Nitrite-Dipstick Negative (Negative); Occult Blood-Urine Negative /ul (Negative); Protein-Dipstick Negative (Negative); Specific Gravity, Urine 1.015 (1.002-1.030); Urine Bilirubin Dipstick Negative (Negative); Urine Clarity Clear (Clear); Urine Urobilinogen Normal (Normal)
[2021-03-18] MEDS: Omega-3 Acid Ethyl Esters 1 GM Capsule PO (22:10)
[2021-03-18] MEDS: Atorvastatin Calcium 10 MG Tablet PO (22:10)
[2021-03-18] MEDS: Niacin SA 500 MG Tablet PO (22:11)
[2021-03-18] MEDS: oxyCODONE 5 MG Tablet PO (22:14)
[2021-03-18 22:15] LABS: Bedside Glucose 121 mg/dL (70-110)
[2021-03-19] VITALS (9 sets, daily range): BP systolic 137–155; BP diastolic 87–94; PULSE 79–92; RESP 16–18; TEMP 36.9–37.2; O2SAT 93–97; BMI 32.1
[2021-03-19] MEDS: HYDROcodone Bitartrate/Apap 5/325 Tablet PO (00:54)
[2021-03-19] MEDS: cycloBENZAPRine HCl 10 MG Tablet PO (00:54)
[2021-03-19 01:07] LABS: Absolute Lymphocyte Count 1.12 X10^3/uL (0.83-4.51); Absolute Neutrophil Count 4.2 X10^3/uL (2.0-7.7); Basophil# 0.01 X10^3/uL; Basophil% 0.2 % (0-1); Hematocrit 38.9 % (40-54); Hemoglobin 13.3 g/dL (13.0-16.5); Lymphocyte # 1.12 X10^3/ul (0.83-4.51); Lymphocyte % 18.8 % (19-41); Mean Corp Hgb Conc 34.2 g/dL (32-36); Mean Corpuscular Hgb 30.6 pg (27.0-32.0); Mean Corpuscular Volume 89.6 fL (80-94); Mean Platelet Vol. 9.6 fl (6.2-12.0); Monocyte# 0.61 X10^3/uL; Monocyte% 10.3 % (0-10); NRBC Flagged by Analyzer 0 % (0-5); Neutrophil # 4.19 X10^3/uL (2.7-7.7); Neutrophil % 70.4 % (47-70); Platelet Count 173 K/mm3 (150-450); RBC Distribution Width CV 12.8 % (11.6-14.6); RBC Distribution Width SD 42.2 fl (35.1-43.9); Red Blood Count 4.34 M/mm3 (4.6-6.2)
[2021-03-19 01:17] LABS: Troponin-I HS 8 pg/mL (3.0-78.0)
[2021-03-19 01:24] LABS: AST(SGOT) 36 U/L (15-37); Alanine Aminotransfer ALT/SGPT 67 U/L (16-61); Albumin, Serum 3.4 g/dL (3.2-5.0); Alkaline Phosphatase 34 U/L (45-117); Anion Gap 12 (5-15); BUN 11 mg/dL (7-18); Calcium,Total 8.5 mg/dL (8.5-10.1); Chloride 106 mmol/L (98-107); Cholesterol 150 mg/dL (200); Creatinine, Serum 0.92 mg/dL (0.70-1.30); EST Glomerular Filtration Rate 88 mL/min (>60); Est Glom Filt Rate - Afr Amer 106 mL/min (>60); Estimated Creatinine Clearance 73.84 ml/min; Globulin 3.4 g/dL (2.2-4.2); Glucose 105 mg/dL (74-106); High Density Lipoprotein 40 mg/dL; Potassium 3.5 mmol/L (3.5-5.1); Protein, Total 6.8 g/dL (6.4-8.2); Sodium Level 138 mmol/L (136-145); Triglycerides 129 mg/dL; Very Low Density Lipoprotein 26 mg/dL (5-40)
[2021-03-19] MEDS: 0.9% Saline Lock 10 ML Syringe IV ×2 (03:41→21:22)
[2021-03-19] MEDS: Ketorolac 15 MG/ML Vial IV ×3 (03:41→21:22)
--- NOTE | 2021-03-19 04:23 | PN.HOSP_ITS ---
Hospitalist Note Called multiple times through the evening for right leg pain/spasming. We tried different medications to help relieve his pain but it was persistent. Patient was reevaluated this morning early. Upon exam he has no swelling, ecchymosis, or deformity. His leg is slightly flexed and externally rotated and this appears to be the most comfortable position for him which does make me concerned about an anterior articular process. Upon exam he has pain with palpation at the femoral triangle. There is no tingling or numbness consistent with femoral nerve injury, his femoral pulses good, but I do wonder if there is underlying muscular issue that is causing his pain. He indicates that when he squeezes the muscle and soft tissue laterally it relieves his symptoms and was begging me to place a tourniquet on his leg or cut his leg off. We compromised and placed the trial of an Chapo bandage around his upper thigh to supply some compression to the area and he did get good pain relief with this. We also did give him a one-time dose of Toradol as his renal function had improved. We discussed concerning signs with regards to the Chapo bandage and vascular checks hourly were ordered as long as he has bandages in place. The patient voiced good understanding and had good relief of his symptoms persistently since the bandage was placed. O rthopedic surgery has been consulted. He had a negative CT of the abdomen and pelvis for any bony abnormality or abnormality in the region of pain and his x- rays were negative for any fracture. I am questioning whether there may be occult fracture or muscular injury causing his symptoms an MRI may be beneficial if he is able to lie still for this.
[2021-03-19] MEDS: 0.9% Normal Saline 1,000 ML 125 ML IV ×2 (05:08→16:18)
--- NOTE | 2021-03-19 05:55 | EKG12_ITS ---
Test Reason : AM Blood Pressure : / mmHG Vent. Rate : 082 BPM Atrial Rate : 082 BPM P-R Int : 158 ms QRS Dur : 096 ms QT Int : 402 ms P-R-T Axes : 054 -30 012 degrees QTc Int : 469 ms Normal sinus rhythm Left axis deviation Abnormal ECG When compared with ECG of 18-MAR-2021 14:40, MANUAL COMPARISON REQUIRED, DATA IS UNCONFIRMED Confirmed by SORAIDA DUNCAN, CHUNG ([id number]), web content editor EWA ROMAN ([id number]) on 04/02/2021 1:50:03 PM Referred By: JOSE Confirmed By:VIMAL QUIGLEY MD
[2021-03-19 06:40] LABS: Bedside Glucose 133 mg/dL (70-110)
--- NOTE | 2021-03-19 06:59 | MRI_ITS ---
HISTORY: Right pelvis pain rule out occult hip fracture vs adductor tear. TECHNIQUE: Multiplanar and multisequence MR images of the right hip. IV Contrast dosage and agent: None. # of images incl. paperwork: 224. COMPARISON: CT and neck are prior day. FINDINGS: BONE: Bone marrow edema and nondisplaced fracture of the intertrochanteric right femur. No avascular necrosis of the femoral heads. JOINT SPACES: Alignment within normal limits without dislocation. Mild degenerative change of the hip.. No significant joint effusion. TENDONS/MUSCLES: Moderate intramuscular edema and fluid surrounding the fracture with strain and tear of the adductor/obturator externus and vastus musculature. Right gluteal musculotendinous tear. Right iliopsoas musculotendinous tear. Right hamstring tendinopathy. Intact rectus femoris tendons. Left hamstring partial tear. PELVIC CONTENTS: Artifact from fluid-filled bowel in the right lower quadrant. No significant free fluid in the pelvis. MRI/Lower Ext Joint Only (Routine) IMPRESSION: Nondisplaced intertrochanteric fracture of the right femur with surrounding musculotendinous tear and strain as above. at 1420 Reported and signed by: Soumya Nelson MD Electronically Signed: Soumya Nelson MD at 14:19 EST Tel , Service support ,
--- NOTE | 2021-03-19 07:01 | CONS.ORTHO ---
HPI Consult Data Date of Consult: 03/19/21 HPI Narrative HPI Narrative: NAPOLEON CLINE, is a 65 M who presented To [facility] [place] emergency department 03/18/2021 with intractable right hip pain after a fall from standing height onto his right side while he was going for a shot playing racquetball. He states his left leg slipped out to the side causing him to fall on his right side. He states most the pain is in his groin and any movement of the right hip causes excruciating pain. Denies any history of antecedent hip or groin pain. Denies any radicular symptoms into bilateral lower extremities in the past. Denies numbness or tingling at this time. Overnight, he requested nursing wrap his proximal thigh with an Chapo bandage, which he states is helped what he thinks is muscle spasm in the region of the proximal adductors. Of note, patient was given morphine in the emergency department. Was noted to be cyanotic, bradycardic and went into brief cardiac arrest requiring CPR. He was then given Narcan. He has been stable from a cardiovascular standpoint since then. [facility] Medical History Diabetes High cholesterol Hypertension Shoulder fracture Home Medications amlodipine 10 mg PO DAILY 03/18/21 [History Last Taken 03/18/21] cholecalciferol (vitamin D3) [Vitamin D3] 175 mcg PO DAILY 03/18/21 [History Last Taken 03/18/21] dapagliflozin [Farxiga] 10 mg PO DAILY 03/18/21 [History Last Taken 03/18/21] diphenhydramine HCl 50 mg PO QHS 03/18/21 [History Last Taken 03/17/21] dulaglutide [Trulicity] 0.75 mg SUBCUT QWEEK 03/18/21 [History Last Taken 03/18/21] fenofibrate 160 mg PO DAILY 03/18/21 [History Last Taken 03/18/21] glipizide 5 mg PO BID 03/18/21 [History Last Taken 03/18/21] metformin 1,000 mg PO BID 03/18/21 [History Last Taken 03/18/21] niacin 500 mg PO QHS 03/18/21 [History Last Taken 03/17/21] omega-3 fatty acids [Fish Oil] 1,000 mg PO BID 03/18/21 [History Last Taken 03/18/21] pioglitazone 30 mg PO DAILY 03/18/21 [History Last Taken 03/18/21] prasterone (dhea)-calcium carb [DHEA] 0.5 tab PO DAILY 03/18/21 [History Last Taken 03/18/21] ramipril 10 mg PO DAILY 03/18/21 [History Last Taken 03/18/21] simvastatin 20 mg PO DAILY 03/18/21 [History Last Taken 03/18/21] sitagliptin [Januvia] 100 mg PO DAILY 03/18/21 [History Last Taken 03/18/21] Allergy/AdvReac Type Severity Reaction Status Date / Time No Known Allergies Allergy Verified 03/18/21 13:27 Family History Mother Cancer Hx breast CA. Father Heart disease CHF (congestive heart failure) Valvular heart disease Surgical History H/O rotator cuff surgery Social History household members: spouse Smoking Status: Former smoker how long ago did patient quit smoking: Quit 10 years prior, smoked 1/3 ppd since teen. alcohol intake: current alcohol intake frequency: a few times a month substance use type: marijuana Vital Signs Vital Signs Vital Signs: 03/18/21 13:13 03/18/21 13:26 03/18/21 14:34 Temperature 98 F Temperature Source Temporal Pulse Rate 95 Respiratory Rate 20 H Respiratory Effort Normal Non-Labored Respiratory Depth Respiratory Pattern Blood Pressure 126/76 H Blood Pressure Mean 92 Blood Pressure Source Blood Pressure Position Blood Pressure Location Pulse Ox 92 Oxygen Delivery Method Room Air Nasal Cannula Oxygen Flow Rate (L/min) 2 03/18/21 14:54 03/18/21 15:16 03/18/21 15:36 Temperature Temperature Source Pulse Rate 81 75 74 Respiratory Rate 28 H 19 H 16 Respiratory Effort Respiratory Depth Respiratory Pattern Blood Pressure 150/73 H 118/88 H Blood Pressure Mean 98 98 Blood Pressure Source Blood Pressure Position Blood Pressure Location Pulse Ox 95 98 98 Oxygen Delivery Method Nasal Cannula Nasal Cannula Nasal Cannula Oxygen Flow Rate (L/min) 2 5 5 03/18/21 16:12 03/18/21 16:19 03/18/21 16:20 Temperature 97.8 F Temperature Source Oral Pulse Rate 83 82 83 Respiratory Rate 14 16 16 Respiratory Effort Respiratory Depth Respiratory Pattern Blood Pressure 130/76 H 119/78 119/78 Blood Pressure Mean 94 91 91 Blood Pressure Source Blood Pressure Position Blood Pressure Location Pulse Ox 98 97 97 Oxygen Delivery Method Nasal Cannula Nasal Cannula Nasal Cannula Oxygen Flow Rate (L/min) 5 5 5 03/18/21 17:36 03/18/21 17:44 03/18/21 18:00 Temperature Temperature Source Pulse Rate 86 86 87 Respiratory Rate 18 14 16 Respiratory Effort Respiratory Depth Respiratory Pattern Blood Pressure 125/77 H 131/83 H Blood Pressure Mean 93 99 Blood Pressure Source Blood Pressure Position Blood Pressure Location Pulse Ox 97 98 98 Oxygen Delivery Method Nasal Cannula Nasal Cannula Nasal Cannula Oxygen Flow Rate (L/min) 5 5 4 03/18/21 18:22 03/18/21 18:26 03/18/21 18:50 Temperature 98.2 F Temperature Source Oral Pulse Rate 87 87 Respiratory Rate 16 Respiratory Effort Normal Respiratory Depth Shallow Respiratory Pattern Irregular Blood Pressure 136/82 H Blood Pressure Mean 100 Blood Pressure Source Monitor Blood Pressure Position Semi-Fowlers Blood Pressure Location Left Arm Pulse Ox 100 Oxygen Delivery Method Nasal Cannula Nasal Cannula Oxygen Flow Rate (L/min) 3 3 03/18/21 19:00 03/18/21 20:00 03/18/21 20:04 Temperature Temperature Source Pulse Rate 87 Respiratory Rate Respiratory Effort Normal Non-Labored Respiratory Depth Normal Respiratory Pattern Normal Blood Pressure Blood Pressure Mean Blood Pressure Source Blood Pressure Position Blood Pressure Location Pulse Ox 100 Oxygen Delivery Method Nasal Cannula Nasal Cannula Oxygen Flow Rate (L/min) 3 3 03/18/21 21:03 03/18/21 21:30 03/19/21 03:00 Temperature 99.1 F Temperature Source Oral Pulse Rate 86 90 Respiratory Rate 16 Respiratory Effort Respiratory Depth Respiratory Pattern Blood Pressure 141/76 H Blood Pressure Mean 97 Blood Pressure Source Monitor Blood Pressure Position Semi-Fowlers Blood Pressure Location Right Arm Pulse Ox 98 98 Oxygen Delivery Method Nasal Cannula Nasal Cannula Oxygen Flow Rate (L/min) 3 4 03/19/21 03:15 03/19/21 03:25 Temperature 98.5 F Temperature Source Oral Pulse Rate 92 Respiratory Rate 18 Respiratory Effort Normal Non-Labored Respiratory Depth Normal Respiratory Pattern Normal Blood Pressure 137/94 H Blood Pressure Mean 108 Blood Pressure Source Monitor Blood Pressure Position Semi-Fowlers Blood Pressure Location Left Arm Pulse Ox 97 Oxygen Delivery Method Nasal Cannula Nasal Cannula Oxygen Flow Rate (L/min) 3 3 Weight Weight: 205 lb 6 oz Body Mass Index (BMI) 32.1 Physical Exam Narrative General -A&Ox3, NAD, appears stated age. Vital signs stable, afebrile. Respiratory -normal work of breathing, no intercostal retractions. CV -pulses regular, brisk capillary refill ?4 limbs. Abdomen-soft, nontender, nondistended. No guarding, rigidity, rebound tenderness. Musculoskeletal/neurologic -full range of motion nontender throughout bilateral upper extremities, left lower extremity with full sensation and strength in all dermatomes and myotomes. No midline cervical tenderness. Right lower extremity-no obvious deformity. Pain with logroll of the right lower extremity. Nontender throughout the right knee femoral shaft, tibial shaft and right foot/ankle. Brisk capillary refill. Sensation intact light touch L3-S1 dermatomes. DF, PF, EHL intact. DP, PT 2+. Pelvis is stable. There is some tenderness along the ASIS/AIIS which reproduces symptoms. He also has profound tenderness in the adductor origin region from the pubis. Skin is intact without lacerations, abrasions. No ecchymosis noted. Lab / Micro Data Result Diagrams: 03/19/21 00:46 03/19/21 00:46 Labs: Laboratory Results - last 24 hr 03/18/21 13:20: WBC 5.5, RBC 4.90, Hgb 15.0, Hct 43.6, MCV 89.0, MCH 30.6, MCHC 34.4, RDW Std Deviation 42.1, RDW Coeff of Carri 12.8, Plt Count 203, MPV 10.1, Immature Gran % (Auto) 0.500, Neut % (Auto) 79.4 H, Lymph % (Auto) 11.1 L, [place] % (Auto) 8.4, Eos % (Auto) 0.2, Baso % (Auto) 0.4, Absolute Neuts (auto) 4.4, Absolute Lymphs (auto) 0.61 L, Nucleated RBC % 0 03/18/21 13:20: Sodium 140, Potassium 4.4, Chloride 106, Carbon Dioxide 25.0, Anion Gap 9, BUN 15, Creatinine 1.56 H, Estim Creat Clear Calc 43.55, Est GFR (MDRD) Af Amer 58 L, Est GFR (MDRD) Non-Af 48 L, BUN/Creatinine Ratio 9.6 L, Glucose 272 H, Calcium 9.9, Magnesium 1.9, Troponin I High Sens 6 03/18/21 13:20: PT 13.5, INR 1.1, APTT 23.8 L 03/18/21 13:20: B-Natriuretic Peptide 14.0 03/18/21 13:40: POC Glucose 154 H 03/18/21 14:26: POC Glucose 97 03/18/21 18:56: Troponin I High Sens 12 03/18/21 20:50: Troponin I High Sens 12 03/18/21 21:19: Urine Color Yellow, Urine Clarity Clear, Urine pH 5.0, Ur Specific [place] 1.015, Urine Protein Negative, Urine Glucose (UA) 1000 H, Urine Ketones 50 H, Urine Occult Blood Negative, Urine Nitrite Negative, Urine Bilirubin Negative, Urine Urobilinogen Normal, Ur Leukocyte Esterase Negative, Urine RBC 0 SEEN, Urine WBC 0 SEEN, Ur Squamous Epith Cells 0 SEEN, Urine Bacteria 0 SEEN, Urine Mucus 0 SEEN 03/18/21 22:09: POC Glucose 121 H 03/19/21 00:46: WBC 6.0, RBC 4.34 L, Hgb 13.3, Hct 38.9 L, MCV 89.6, MCH 30.6, MCHC 34.2, RDW Std Deviation 42.2, RDW Coeff of Carri 12.8, Plt Count 173, MPV 9.6, Immature Gran % (Auto) 0.300, Neut % (Auto) 70.4 H, Lymph % (Auto) 18.8 L, [place] % (Auto) 10.3 H, Eos % (Auto) 0.0, Baso % (Auto) 0.2, Absolute Neuts (auto) 4.2, Absolute Lymphs (auto) 1.12, Nucleated RBC % 0 03/19/21 00:46: Sodium 138, Potassium 3.5, Chloride 106, Carbon Dioxide 20.0 L, Anion Gap 12, BUN 11, Creatinine 0.92, Estim Creat Clear Calc 73.84, Est GFR (MDRD) Af Amer 106, Est GFR (MDRD) Non-Af 88, BUN/Creatinine Ratio 12.0, Glucose 105, Calcium 8.5, Total Bilirubin 0.40, AST 36, ALT 67 H, Alkaline Phosphatase 34 L, Total Protein 6.8, Albumin 3.4, Globulin 3.4, Albumin/Globulin Ratio 1.0, Triglycerides 129, Cholesterol 150, LDL Cholesterol 84, VLDL Cholesterol 26, HDL Cholesterol 40 03/19/21 00:46: Troponin I High Sens 8 03/19/21 06:31: POC Glucose 133 H Micro: Microbiology 03/18/21 16:17 Nasal Secretion SARS-CoV-2 Antigen (Rapid) - Final Radiology Impression Hip/Pelvis X-Ray 03/18/21 13:50 IMPRESSION: Degenerative changes, no acute osseous abnormality seen. Electronically Signed: Andrea Chaparro MD at 14:08 EST Tel , Service support , Chest X-Ray 03/18/21 14:50 Abdomen/Pelvis CT 03/18/21 16:13 IMPRESSION: Focal prominent loops of small bowel visualized at the level of a transition point where there is wall thickening with appearance of circumferential narrowing/stone + seen in the anterior lower abdomen, would recommend clinical correlation for intussusception and if clinically indicated further evaluation with a small bowel follow-through. Subtle soft tissue irregularity visualized in the base of the urinary bladder this could represent the prominence of the prostate gland or a bladder base mass would recommend further evaluation with ultrasound. The appendix is visualized and is unremarkable. The gallbladder is slightly prominent but no evidence of wall thickening, no evidence of pericholecystic stranding. Diverticular disease but no evidence of acute diverticulitis. Extensive degenerative bone changes visualized with severe narrowing of the lumbar neural foramina visualized at multiple levels. Degenerative changes visualized in the hip joints, no acute osseous abnormality is visualized in the hip joints. Electronically Signed: Andrea Chaparro MD at 16:59 EST Tel , Service support , Assessment & Plan Assessment/Plan (1) Right groin pain: PLAN: Suspect tendon strain/tear versus occult fracture Given the risk of occult fracture, I would recommend obtaining an MRI in the inpatient setting. I ordered an MRI of the right hip without contrast this morning. Will follow Thank you for this consultation.
[2021-03-19] MEDS: Aspirin 81 MG TAB.CHEW PO (08:34)
[2021-03-19] MEDS: Enoxaparin 40 MG/0.4 ML Syringe SC (08:35)
[2021-03-19] MEDS: amLODIPine 10 MG Tablet PO (08:35)
[2021-03-19] MEDS: Omega-3 Acid Ethyl Esters 1 GM Capsule PO ×2 (08:35→21:02)
[2021-03-19] MEDS: Lisinopril 10 MG Tablet PO (08:35)
[2021-03-19] MEDS: Fenofibrate 145 MG Tablet PO (08:35)
[2021-03-19] MEDS: Acetaminophen 325 MG Tablet 650 MG PO ×2 (09:09→16:19)
[2021-03-19] MEDS: oxyCODONE 5 MG Tablet PO ×2 (09:09→16:19)
[2021-03-19 11:21] LABS: Bedside Glucose 135 mg/dL (70-110)
--- NOTE | 2021-03-19 12:06 | CHAPLAIN ---
Type of Pastoral Visit ___ Initial Visit _x__ Follow-up Visit ___ On-call Visit ___ General Patient Visit ___ Spiritual Assessment ___ Family Conference ___ Bereavement ___ Rapid Response ___ Code Blue ___ Other (describe below) Pastoral Care Referral From _x__ Patient ___ Family ___ Nurse ___ Physician ___ Engineering Surveyor ___ Menswear Salesperson ___ Other (describe below) Sacrament/Intervention _x__ Active listening ___ Anointing ___ Presybeterian ___ Bereavement ___ Communion ___ Brittani exploration ___ ___ Life review ___ Prayer ___ Reconciliation ___ Sacrament of Sick _x__ Supportive presence ___ Wedding ___ Other (describe below) Pastoral Comments supportive follow up visit to patient seen at [facility] yesterday in ED
--- NOTE | 2021-03-19 12:10 | CASEMGMT ---
RN CM Assessment: Face to Face with patient for initial transition planning/care coordination assessment. Patient alert and oriented, lying in bed, c/o groin pain, worsened by any movement. CCM introduced self and role at [facility]. Care providers, pharmacy, and demographics verified. PCP: Yvan Specialists: None Preferred Pharmacy: [facility] Insurance: Medicare & [employer] Prescription Benefit: yes Living Will/HPOA: Patient states has LW/HPOA. Patient made aware these forms are not on file at [facility] and may be brought in to be scanned into record. LNOK: , Lisa Kingston Living Arrangements: Patient lives with in 3 story house with 2 steps to enter the home without a railing. Patient states independent with ADLs prior to hospitalization. Patient typically active, plays racquetball. Social: Former smoker, occasional ETOH use (about once a month), smokes marijuana daily Transportation: Self DME/HHC: Patient has shower chair, grab bars, wheelchair and glucometer at home. Denies previous HHC or SNF stays. Plan: home
--- NOTE | 2021-03-19 14:55 | PN.HOSP_ITS ---
Documented by User: Luba Aceves NP-Eugenio 03/19/21 15:02 Subjective Subjective Patient seen and examined. Patient lying in bed no distress noted. Patient denies pain at this time. Chapo wrap intact to right upper thigh. Objective Data Objective Data Vital Signs: Vital Signs Temp Pulse Resp BP Pulse Ox 98.4 F 91 18 150/93 H 96 03/19/21 08:31 03/19/21 14:44 03/19/21 08:31 03/19/21 08:31 03/19/21 08:31 Oxygen Flow Rate (L/min) 3 Oxygen Delivery Method Room Air Weight: 205 lb 6 oz Body Mass Index (BMI) 32.1 Intake & Output: Intake and Output for Last 24 Hours 03/17/21 03/18/21 03/19/21 23:59 23:59 23:59 Intake Total 1740 / 1740 1963.33 / 1963.33 Output Total 500 / 500 900 / 900 Balance 1240 / 1240 1063.33 / 1063.33 Lab / Micro Data Result Diagrams: 03/19/21 00:46 03/19/21 00:46 Labs: Laboratory Results - last 24 hr 03/18/21 13:20: Sodium 140, Potassium 4.4, Chloride 106, Carbon Dioxide 25.0, Anion Gap 9, BUN 15, Creatinine 1.56 H, Estim Creat Clear Calc 43.55, Est GFR (MDRD) Af Amer 58 L, Est GFR (MDRD) Non-Af 48 L, BUN/Creatinine Ratio 9.6 L, Glucose 272 H, Calcium 9.9, Magnesium 1.9, Troponin I High Sens 6 03/18/21 13:20: PT 13.5, INR 1.1, APTT 23.8 L 03/18/21 13:20: B-Natriuretic Peptide 14.0 03/18/21 18:56: Troponin I High Sens 12 03/18/21 20:50: Troponin I High Sens 12 03/18/21 21:19: Urine Color Yellow, Urine Clarity Clear, Urine pH 5.0, Ur Specific Drifting 1.015, Urine Protein Negative, Urine Glucose (UA) 1000 H, Urine Ketones 50 H, Urine Occult Blood Negative, Urine Nitrite Negative, Urine Bilirubin Negative, Urine Urobilinogen Normal, Ur Leukocyte Esterase Negative, Urine RBC 0 SEEN, Urine WBC 0 SEEN, Ur Squamous Epith Cells 0 SEEN, Urine Bacteria 0 SEEN, Urine Mucus 0 SEEN 03/18/21 22:09: POC Glucose 121 H 03/19/21 00:46: WBC 6.0, RBC 4.34 L, Hgb 13.3, Hct 38.9 L, MCV 89.6, MCH 30.6, MCHC 34.2, RDW Std Deviation 42.2, RDW Coeff of Carri 12.8, Plt Count 173, MPV 9.6, Immature Gran % (Auto) 0.300, Neut % (Auto) 70.4 H, Lymph % (Auto) 18.[address] L, [facility] % (Auto) 10.3 H, Eos % (Auto) 0.0, Baso % (Auto) 0.2, Absolute Neuts (auto) 4.2, Absolute Lymphs (auto) 1.12, Nucleated RBC % 0 03/19/21 00:46: Sodium 138, Potassium 3.5, Chloride 106, Carbon Dioxide 20.0 L, Anion Gap 12, BUN 11, Creatinine 0.92, Estim Creat Clear Calc 73.84, Est GFR (MDRD) Af Amer 106, Est GFR (MDRD) Non-Af 88, BUN/Creatinine Ratio 12.0, Glucose 105, Calcium 8.5, Total Bilirubin 0.40, AST 36, ALT 67 H, Alkaline Phosphatase 34 L, Total Protein 6.8, Albumin 3.4, Globulin 3.4, Albumin/Globulin Ratio 1.0, Triglycerides 129, Cholesterol 150, LDL Cholesterol 84, VLDL Cholesterol 26, HDL Cholesterol 40 03/19/21 00:46: Troponin I High Sens 8 03/19/21 06:31: POC Glucose 133 H 03/19/21 11:10: POC Glucose 135 H Micro: Microbiology 03/18/21 16:17 Nasal Secretion SARS-CoV-2 Antigen (Rapid) - Final Radiography Diagnostic Testing: Radiology Impression Chest X-Ray 03/18/21 14:50 Abdomen/Pelvis CT 03/18/21 16:13 IMPRESSION: Focal prominent loops of small bowel visualized at the level of a transition point where there is wall thickening with appearance of circumferential narrowing/stone + seen in the anterior lower abdomen, would recommend clinical correlation for intussusception and if clinically indicated further evaluation with a small bowel follow-through. Subtle soft tissue irregularity visualized in the base of the urinary bladder this could represent the prominence of the prostate gland or a bladder base mass would recommend further evaluation with ultrasound. The appendix is visualized and is unremarkable. The gallbladder is slightly prominent but no evidence of wall thickening, no evidence of pericholecystic stranding. Diverticular disease but no evidence of acute diverticulitis. Extensive degenerative bone changes visualized with severe narrowing of the lumbar neural foramina visualized at multiple levels. Degenerative changes visualized in the hip joints, no acute osseous abnormality is visualized in the hip joints. Electronically Signed: Andrea Chaparro MD at 16:59 EST Tel , Service support , Echocardiogram 03/18/21 18:31 Interpretation Summary Normal LV size. Left ventricular systolic function is normal. The estimated ejection fraction is 60 %. Stage 1 diastolic dysfunction. Structurally normal valves. Ordering Physician: Barrie^Caroline^^ Referring Physician: TIFFANI LOVETT Performed By: Kimberly Rios RDCS Renal Ultrasound 03/18/21 18:31 IMPRESSION: Soft tissue density in the base of the urinary bladder that could represent protrusion of the prostate gland, recommend urology consultation. Heterogeneous echogenicity of the prostate gland. Electronically Signed: Andrea Chaparro MD at 8:40 EST Tel , Service support , Lower Extremity MRI 03/19/21 06:59 IMPRESSION: Nondisplaced intertrochanteric fracture of the right femur with surrounding musculotendinous tear and strain as above. at 1420 Reported and signed by: Soumya Nelson MD Electronically Signed: Soumya Nelson MD at 14:19 EST Tel , Service support , Physical Exam Const alert, oriented x3 and no apparent distress HEENT head/scalp atraumatic Head and Scalp: normocephalic Eyes conjunctivae normal and no scleral icterus Neck full ROM and supple General: trachea midline Resp normal respiratory effort and clear to auscultation bilaterally Cardio regular rate, regular rhythm, S1 normal heart sound and S2 normal heart sound GI normal to inspection, nondistended, normoactive bowel sounds, soft to palpation and non-tender Extremity normal capillary refill and no clubbing, cyanosis or edema Peripheral Pulses: Yes pulses 2+ throughout Right Lower Extremity: hip joint inspection (Externally rotated), palpation (Painful palpation to the inner aspect of right groin/hip), ROM (Decreased due to pain) and neurovascular exam (Intact) and upper leg Skin no rashes or lesions noted, no wounds and skin turgor normal Neuro oriented x3, moves all extremities, no focal motor deficits and no sensory deficits noted Sensorium / Orientation: awake and alert Psych affect normal Assessment & Plan Assessment/Plan (1) Bradycardic cardiac arrest: (2) Right groin pain: (3) Fall from slipping: QUALIFIERS: Encounter type: initial encounter Qualified Code(s): W01.0XXA - Fall on same level from slipping, tripping and stumbling without subsequent striking against object, initial encounter PLAN: 1. Transient cardiopulmonary arrest secondary to vasovagal event -Echocardiogram demonstrates EF 60% with stage I diastolic dysfunction -Morphine discontinued, oxycodone, Toradol, cyclobenzaprine for pain management -Cardiology following 2. Mechanical fall with intractable right groin and upper thigh pain -MRI positive for nondisplaced intertrochanteric fracture along with multiple muscle tears/strains -Orthopedics following, plan for patient to go to the OR 03/20/2021 -Continue pain management regimen including oxycodone and cyclobenzaprine DVT prophylaxis-SCDs, subcu Lovenox, will hold for pending surgery This patient was seen by KAREN Curry under the supervision of Dr. Bell. Documented by User: Dr. Elbert Bell, 03/19/21 19:30 Objective Data Lab / Micro Data Result Diagrams: 03/19/21 00:46 03/19/21 00:46 Charges/Coding Addendum Addendum: Patient was seen and examined independently of Nanda Aceves today, he underwent an MRI of his right hip today which showed an intertrochanteric fracture, I talked with orthopedic surgery about his care, I also talked with his about the diagnosis by phone. The plan is for the patient undergo repair of the right hip fracture tomorrow using a gamma nail. I talked with cardiology (), Dr. Tipton felt that the patient was medically stable for surgery at this time-patient's echocardiogram was unremarkable. On examination he appeared in good health and spirits. Vital signs as documented. Skin warm and dry and without overt rashes. Neck without JVD, neck was supple, trachea midline, thyroid was normal. Lungs clear bilaterally, normal air movement was noted. Heart exam notable for regular rhythm, normal sounds and absence of murmurs, rubs or gallops. Abdomen unremarkable and without evidence of organomegaly, masses, or abdominal aortic enlargement. Bowel sounds are present, abdomen is not distended. Extremities nonedematous, no cyanosis was noted, no clubbing was noted. Patient is extremely tender to palpation in the right groin and hip area, he cannot move his right leg without significant pain in the right hip area. Neuro: Cranial nerves II through XII are grossly intact, no focal motor deficits were noted, sensation to light touch and pinprick i ntact, motor exam 5/5 throughout. Psych: Patient is alert and oriented x3, he does not appear anxious or depressed, he does not appear agitated. Patient appears stable for surgery at this time. I have reviewed Nanda Knoble's progress note including her medical assessment and plan of care and endorse it. Visit Charges Inpatient E&M: 71287 Subs Hosp L2
[2021-03-19 16:15] LABS: Bedside Glucose 196 mg/dL (70-110)
[2021-03-19] MEDS: Insulin Lispro 100 UNIT/ML INSULN.PEN SC ×2 (16:18→21:01)
[2021-03-19] MEDS: Niacin SA 500 MG Tablet PO (21:02)
[2021-03-19] MEDS: Atorvastatin Calcium 10 MG Tablet PO (21:03)
[2021-03-19 21:20] LABS: Bedside Glucose 192 mg/dL (70-110)
[2021-03-19] MEDS: Polyethylene Glycol 3350 17 GM PACKET PO (21:22)
[2021-03-19] MEDS: Docusate Sodium 100 MG Capsule PO (21:22)
[2021-03-20] VITALS (15 sets, daily range): BP systolic 138–159; BP diastolic 79–94; PULSE 81–95; RESP 16–18; TEMP 36.7–37.7; O2SAT 93–100
[2021-03-20] MEDS: 0.9% Normal Saline 1,000 ML 125 ML IV ×3 (02:57→19:03)
[2021-03-20 05:25] LABS: Absolute Lymphocyte Count 0.85 X10^3/uL (0.83-4.51); Absolute Neutrophil Count 3.6 X10^3/uL (2.0-7.7); Basophil# 0.01 X10^3/uL; Basophil% 0.2 % (0-1); Eosinophil# 0.02 X10^3/uL; Eosinophils% 0.4 % (0-5); Hematocrit 39.9 % (40-54); Hemoglobin 13.4 g/dL (13.0-16.5); Lymphocyte # 0.85 X10^3/ul (0.83-4.51); Lymphocyte % 16.9 % (19-41); Mean Corp Hgb Conc 33.6 g/dL (32-36); Mean Corpuscular Hgb 29.6 pg (27.0-32.0); Mean Corpuscular Volume 88.3 fL (80-94); Mean Platelet Vol. 9.5 fl (6.2-12.0); Monocyte# 0.55 X10^3/uL; NRBC Flagged by Analyzer 0 % (0-5); Neutrophil # 3.57 X10^3/uL (2.7-7.7); Neutrophil % 71.1 % (47-70); Platelet Count 156 K/mm3 (150-450); RBC Distribution Width CV 12.4 % (11.6-14.6); RBC Distribution Width SD 40.4 fl (35.1-43.9); Red Blood Count 4.52 M/mm3 (4.6-6.2)
[2021-03-20] MEDS: Ketorolac 15 MG/ML Vial IV ×3 (05:32→21:21)
[2021-03-20] MEDS: 0.9% Saline Lock 10 ML Syringe IV ×2 (05:33→21:21)
[2021-03-20 05:48] LABS: Anion Gap 9 (5-15); BUN 10 mg/dL (7-18); Calcium,Total 8.6 mg/dL (8.5-10.1); Chloride 102 mmol/L (98-107); Creatinine, Serum 0.77 mg/dL (0.70-1.30); EST Glomerular Filtration Rate 108 mL/min (>60); Est Glom Filt Rate - Afr Amer 130 mL/min (>60); Estimated Creatinine Clearance 67.94 ml/min; Glucose 145 mg/dL (74-106); Potassium 4.1 mmol/L (3.5-5.1); Sodium Level 133 mmol/L (136-145)
[2021-03-20 06:26] LABS: Bedside Glucose 140 mg/dL (70-110)
--- NOTE | 2021-03-20 07:30 | RAD_ITS ---
STUDY: X-RAY - PELVIS AND RIGHT HIP REASON FOR EXAM: Male, 65 years old. FX TECHNIQUE: 2 fluoroscopic views of the pelvis and hip. 105 seconds of fluoroscopy time. COMPARISON: MRI 03/19/2021 FINDINGS: Fluoroscopic images demonstrate placement of proximal femur medullary amber with distal interlocking screw and fixation screws of the femoral neck. Gross alignment. RAD/Hip 1 view with Pelvis IMPRESSION: Fluoroscopic guidance for right IT fracture fixation. Electronically Signed: Eric Francisco MD (Brooks) at 10:29 EST , Service support ,
[2021-03-20 09:55] LABS: Hemoglobin A1c 7.6 % (3.8-5.6)
--- NOTE | 2021-03-20 10:14 | OP.PCM_ITS ---
Report of Operation Date of Procedure: 03/20/21 Description of Surgical Findings:: Preoperative diagnosis: Right occult nondisplaced intertrochanteric proximal femur fracture Postoperative diagnosis: Right occult nondisplaced intertrochanteric proximal femur fracture Procedure: Treatment of intertrochanteric hip fracture with intramedullary nail right femur Surgeon: Real Doyle DO Anesthesia: General endotracheal Anesthesiologist: Dr. Barron Complications: None Drains: None Estimated blood loss: 100 cc Urinary output: None recorded IV fluids: 500 cc crystalloid Specimens: None Surgical implants: [employer] TriGen InterTAN 10 mm x 18 cm 125 degree right, 95 mm lag screw, 90 mm compression screw, TriGen L-P screw 5.0 mm by 32.5 mm Indications: This is a 65 M who presented To [facility] emergency department 03/18/2021 with intractable right hip pain after a fall from standing height onto his right side while he was going for a shot playing [employer]. He stated his left leg slipped out to the side causing him to fall on his right side. He stated most the pain is in his groin and any movement of the right hip causes excruciating pain. Denied any history of antecedent hip or groin pain. X-ray and CT scans were unremarkable. We performed a MRI of his right hip on 03/19/2021 which demonstrated multiple tendon strains and a gluteal musculotendinous junction tear as well as a nondisplaced right intertrochanteric proximal femur fracture. I recommended surgical intervention in the form of right femur cephalomedullary nailing. We discussed the risks, benefits, alternatives. Risks include but were not limited to bleeding, infection, loss of life or limb, risk of anesthesia, need for additional surgery, persistent pain, nonunion or malunion, neurovascular injury, DVT or PE. Patient expressed understanding of these risks and wished to proceed with surgery. Of note, patient was given morphine in the emergency department. Was noted to be cyanotic, bradycardic and went into brief cardiac arrest requiring CPR. He was then given Narcan. He has been stable from a cardiovascular standpoint since then. He was seen by cardiology where an echocardiogram was performed and was benign. He subsequently was cleared for surgery. Description of procedure: Prior to the procedure, patient was brought to the preoperative holding area where patient was identified by name, medical record number and date of . I confirmed the side, site, operation to be performed with the patient. Informed consent was confirmed, All questions were answered to patient satisfaction. The operative extremity was marked. He was also seen by anesthesia staff and anesthesia consent obtained.At time of the operative procedure, pt was brought to the operative suite. General anesthesia was induced on the hospital bed and endotracheal tube placed. After adequate anesthesia and securing the tube, patient was then positioned supine on a fracture table. The operative foot was well-padded and placed in a ski boot attached to the traction unit on the fracture table. The non operative leg was well padded, extended and secured to the axial bar of the table. A well-padded perineal post was placed and the right upper extremity was brought across patient's torso and secured. No significant reduction was performed. Fluoroscopy was used to confirm that the fracture maintained its nondisplaced nature. We then prepped and draped the operative lower extremity of normal sterile orthopedic fashion. A timeout was performed with all parties in attendance in agreement of the side, site, operation to be performed. We elected to proceed. 2 g Ancef was administered prior to incision by the anesthesia staff. Fluoroscopy was used to confirm the level of the incision approximately 4 fingerbreadths proximal to the tip of the greater trochanter in line with the femoral shaft. We sharply incised the skin with a 10 blade scalpel carried an incision sharply through the subcutaneous tissue past the IT band to the level of the greater trochanter. A starting pin was utilized and under fluoroscopic guidance placed at the tip of the greater trochanter in line with the femoral shaft on the lateral view. We then, on power, passed the guidepin into the intramedullary canal. A opening reamer was then placed over top of the guide pin and soft tissue protector placed. We utilized the opening reamer to establish entry into the intramedullary canal. The guide pin removed. I then selected a 10 mm x 18 cm 125 degrees on the right. We impacted the nail to an appropriate depth. The targeting guide for the lag screw and compression screw was attached to the handle of the nail. Skin was sharply incised on the lateral thigh and the targeting sleeve placed down to bone. The drill pin for the leg screw was then directed into the femoral head to a level less than 25 mm tip to apex distance on the AP and lateral projections. An appropriately sized lag screw of 95 mm was measured . We then reamed for the compression screw past the level of the fracture. A derotation bar was placed. I drilled and subsequently tapped for the lag screw. I then inserted the cannulated 95 mm lag screw over the drill pin. We again confirmed appropriate placement on fluoroscopy. The compression screw was then placed under power and tightened under with a manual non emergency services ambulance driver after traction removed from the right lower extremity. We used fluoroscopy to view the amount of compression across the fracture site, which was obviously minimal given the nondisplaced nature.. I then analyzed screw placement and elected to proceed with interlocking screw placement. The drill sleeve was removed as well as the guidepin. We then made a lateral thigh incision for the interlocking screw through the static slot of the nail. The femur was then drilled bicortically through the isthmus and we measured 32.5 mm for an appropriately sized dynamic interlocking screw. The drill was then removed and we placed the 32.5 mm screw with good cortical fixation. Of note, 1 screw was wasted as its head stripped during placement, likely due to the patient's very dense diaphyseal bone quality. Final fluoroscopic images were obtained. Wounds were copiously irrigated with normal saline solution. Deep tissues were closed with 0 Vicryl suture and subcutaneous tissue closed with 2-0 Vicryl suture. Skin was finally closed with sara. Sterile compression dressings were applied to the wounds. Patient was then taken out of traction entirely and removed from both traction boot and well leg marie. Patient was transferred back to his hospital bed in stable condition and extubated safely in the operative suite. Patient was then transferred to PACU in stable condition. Post Operative Plan: Weightbearing: Weightbearing as tolerated right lower extremity Antibiotics: 23 hours of Ancef DVT Prophylaxis: Restart planned Lovenox tomorrow morning, from my standpoint may be discharged home on aspirin if ambulating well. I will defer to primary if they feel a true anticoagulant like Lovenox is necessary. Alcazar: None Dressing: Dry sterile dressing changes daily as needed, okay to shower on postoperative day #3 and leave open to air if no drainage. X-Rays: Obtained in my office in 2-3 weeks Follow-up: 2-3 weeks in my office
[2021-03-20 10:31] LABS: Bedside Glucose 161 mg/dL (70-110)
[2021-03-20] MEDS: Acetaminophen 325 MG Tablet 650 MG PO ×3 (11:00→23:20)
[2021-03-20] MEDS: oxyCODONE 5 MG Tablet PO ×3 (11:00→23:25)
[2021-03-20] MEDS: Docusate Sodium 100 MG Capsule PO (11:00)
--- NOTE | 2021-03-20 11:55 | NURSING ---
this RN was called to room at this time for reports that patient felt like he was going to pass out, PT/OT working with patient, patient sitting to edge of bed. Stated that he had been standing with therapy and then felt nauseous, diaphoretic, and reports he looked like he did in ED when he went asystole. Patient was sat back down to edge of bed and applied O2. VSS, BG 154, breathing techniques performed. Notified Maximiliano Aceves NP. Believe this to be a vasovagal response to pain.
[2021-03-20 12:10] LABS: Bedside Glucose 154 mg/dL (70-110)
--- NOTE | 2021-03-20 12:42 | PN.HOSP_ITS ---
Documented by User: KAREN Curry 03/20/21 12:50 Subjective Subjective Patient seen and examined following his return from the OR. Patient states that he is having pain but has received pain management approximately 20 minutes prior to evaluation. Patient lying in bed no distress noted, at bedside. Objective Data Objective Data Vital Signs: Vital Signs Temp Pulse Resp BP Pulse Ox 98.8 F 81 18 154/93 H 96 03/20/21 10:53 03/20/21 10:53 03/20/21 10:53 03/20/21 10:53 03/20/21 10:53 Oxygen Flow Rate (L/min) 3 Oxygen Delivery Method Room Air Weight: 195 lb 12.328 oz Body Mass Index (BMI) 32.1 Intake & Output: Intake and Output for Last 24 Hours 03/18/21 03/19/21 03/20/21 23:59 23:59 23:59 Intake Total 1740 / 1740 3260.00 / 3260.00 2110 / 2110 Output Total 500 / 500 2150 / 2150 600 / 600 Balance 1240 / 1240 1110.00 / 1110.00 1510 / 1510 Lab / Micro Data Result Diagrams: 03/20/21 05:08 03/20/21 05:08 Labs: Laboratory Results - last 24 hr 03/18/21 13:20: Blood Type A POSITIVE, Antibody Screen NEGATIVE 03/19/21 16:12: POC Glucose 196 H 03/19/21 20:57: POC Glucose 192 H 03/20/21 05:08: WBC 5.0, RBC 4.52 L, Hgb 13.4, Hct 39.9 L, MCV 88.3, MCH 29.6, MCHC 33.6, RDW Std Deviation 40.4, RDW Coeff of Carri 12.4, Plt Count 156, MPV 9.5, Immature Gran % (Auto) 0.400, Neut % (Auto) 71.1 H, Lymph % (Auto) 16.9 L, [place] % (Auto) 11.0 H, Eos % (Auto) 0.4, Baso % (Auto) 0.2, Absolute Neuts (auto) 3.6, Absolute Lymphs (auto) 0.85, Nucleated RBC % 0 03/20/21 05:08: Sodium 133 L, Potassium 4.1, Chloride 102, Carbon Dioxide 22.0, Anion Gap 9, BUN 10, Creatinine 0.77, Estim Creat Clear Calc 67.94, Est GFR (MDRD) Af Amer 130, Est GFR (MDRD) Non-Af 108, BUN/Creatinine Ratio 13.0, Glucose 145 H, Calcium 8.6 03/20/21 05:08: Hemoglobin A1c 7.6 H 03/20/21 06:16: POC Glucose 140 H 03/20/21 10:24: POC Glucose 161 H 03/20/21 11:59: POC Glucose 154 H Micro: Microbiology 03/18/21 16:17 Nasal Secretion SARS-CoV-2 Antigen (Rapid) - Final Radiography Diagnostic Testing: Radiology Impression Lower Extremity MRI 03/19/21 06:59 IMPRESSION: Nondisplaced intertrochanteric fracture of the right femur with surrounding musculotendinous tear and strain as above. at 1420 Reported and signed by: Soumya Nelson MD Electronically Signed: Soumya Nelson MD at 14:19 EST Tel , Service support , Hip/Pelvis X-Ray 03/20/21 07:30 IMPRESSION: Fluoroscopic guidance for right IT fracture fixation. Electronically Signed: Eric Francisco MD ([place]) at 10:29 EST , Service support , Physical Exam Const alert, oriented x3 and no apparent distress HEENT head/scalp atraumatic Head and Scalp: normocephalic Eyes conjunctivae normal and no scleral icterus Neck supple General: trachea midline Resp normal respiratory effort, normal air movement and clear to auscultation bilaterally Effort and Inspection: able to speak in complete sentences and symmetric chest movement Cardio regular rate, regular rhythm, S1 normal heart sound and S2 normal heart sound GI normal to inspection, nondistended, normoactive bowel sounds, soft to palpation and non-tender Extremity normal capillary refill and no clubbing, cyanosis or edema Peripheral Pulses: Yes pulses 2+ throughout Right Lower Extremity: hip joint palpation (Tender to anterior and lateral aspects of the right hip), ROM (Limited due to pain) and neurovascular exam (Intact) Skin no rashes or lesions noted Skin Narrative: Surgical dressing to right leg dry and intact, no visualization of incision at this time Neuro oriented x3, moves all extremities, no focal motor deficits and no sensory deficits noted Sensorium / Orientation: awake and alert Psych affect normal Assessment & Plan Assessment/Plan (1) Bradycardic cardiac arrest: (2) Nondisplaced intertrochanteric fracture of right femur: QUALIFIERS: Encounter type: initial encounter Fracture type: closed Qualified Code(s): S72.144A - Nondisplaced intertrochanteric fracture of right femur, initial encounter for closed fracture PLAN: 1. Nondisplaced intertrochanteric fracture of right femur -Patient underwent intramedullary nailing this a.m. with Dr. Doyle -PT and OT following 2. Bradycardic cardiac arrest -Following surgery patient was ambulated with PT and OT and became pale and diaphoretic however patient had no changes on his telemetry and his vital signs were stable. Discussed with patient and his the importance of breathing through pain as to avoid vasovagal response DVT prophylaxis-Lovenox on hold secondary to surgery, SCDs This patient was seen by KAREN Curry under the supervision of Dr. Bell. Documented by User: Dr. Elbert Bell DO 03/20/21 19:46 Objective Data Lab / Micro Data Result Diagrams: 03/20/21 05:08 03/20/21 05:08 Charges/Coding Addendum Addendum: Patient was seen and examined today independently of Nanda Aceves, he underwent repair of his right hip fracture with insertion of a intramedullary nail in the right femur. I talked also to his who was in the room today. On examination he appeared in good health and spirits. Vital signs as documented. Skin warm and dry and without overt rashes. Neck without JVD, neck was supple, trachea midline, thyroid was normal. Lungs clear bilaterally, normal air movement was noted. Heart exam notable for regular rhythm, normal sounds and absence of murmurs, rubs or gallops. Abdomen unremarkable and without evidence of organomegaly, masses, or abdominal aortic enlargement. Bowel sounds are present, abdomen is not distended. Extremities nonedematous, no cyanosis was noted, no clubbing was noted. Neuro: Cranial nerves II through XII are grossly intact, no focal motor deficits were noted, sensation to light touch and pinprick intact, motor exam 5/5 throughout. Psych: Patient is alert and oriented x3, he does not appear anxious or depressed, he does not appear agitated. Patient appears stable at this time postop, he will continue to see PT and OT, plans are for the patient to be discharged home when medically stable. I have reviewed Nanda Aceves's progress note including her medical assessment and plan of care and endorse it. Visit Charges Inpatient E&M: 78665 Subs Hosp L2
[2021-03-20] MEDS: Cefazolin 1 GM/50 ML BAG IV ×2 (15:12→23:21)
[2021-03-20] MEDS: Lisinopril 10 MG Tablet PO (15:18)
[2021-03-20] MEDS: amLODIPine 10 MG Tablet PO (15:18)
[2021-03-20] MEDS: Aspirin 81 MG TAB.CHEW PO (15:18)
[2021-03-20] MEDS: Fenofibrate 145 MG Tablet PO (15:18)
[2021-03-20 16:30] LABS: Bedside Glucose 152 mg/dL (70-110)
[2021-03-20] MEDS: Omega-3 Acid Ethyl Esters 1 GM Capsule PO (21:17)
[2021-03-20] MEDS: Atorvastatin Calcium 10 MG Tablet PO (21:17)
[2021-03-20] MEDS: Niacin SA 500 MG Tablet PO (21:17)
[2021-03-20] MEDS: Insulin Lispro 100 UNIT/ML INSULN.PEN SC (21:26)
[2021-03-21] VITALS (8 sets, daily range): BP systolic 134–167; BP diastolic 84–119; PULSE 87–104; RESP 16–18; TEMP 36.5–37.1; O2SAT 94–96
[2021-03-21 00:51] LABS: Bedside Glucose 212 mg/dL (70-110)
[2021-03-21] MEDS: 0.9% Normal Saline 1,000 ML 125 ML IV (03:37)
[2021-03-21 06:25] LABS: Absolute Lymphocyte Count 0.86 X10^3/uL (0.83-4.51); Absolute Neutrophil Count 3.6 X10^3/uL (2.0-7.7); Basophil# 0.01 X10^3/uL; Basophil% 0.2 % (0-1); Eosinophil# 0.01 X10^3/uL; Eosinophils% 0.2 % (0-5); Hematocrit 36.2 % (40-54); Hemoglobin 12.1 g/dL (13.0-16.5); Lymphocyte # 0.86 X10^3/ul (0.83-4.51); Lymphocyte % 17.1 % (19-41); Mean Corp Hgb Conc 33.4 g/dL (32-36); Mean Corpuscular Hgb 29.2 pg (27.0-32.0); Mean Corpuscular Volume 87.4 fL (80-94); Mean Platelet Vol. 9.7 fl (6.2-12.0); Monocyte# 0.58 X10^3/uL; Monocyte% 11.5 % (0-10); NRBC Flagged by Analyzer 0 % (0-5); Neutrophil # 3.56 X10^3/uL (2.7-7.7); Neutrophil % 70.6 % (47-70); Platelet Count 154 K/mm3 (150-450); RBC Distribution Width CV 12.4 % (11.6-14.6); RBC Distribution Width SD 39.8 fl (35.1-43.9); Red Blood Count 4.14 M/mm3 (4.6-6.2)
[2021-03-21] MEDS: Acetaminophen 325 MG Tablet 650 MG PO ×2 (06:28→11:25)
[2021-03-21] MEDS: oxyCODONE 5 MG Tablet PO ×2 (06:28→12:58)
[2021-03-21] MEDS: Insulin Lispro 100 UNIT/ML INSULN.PEN SC ×2 (06:48→11:29)
[2021-03-21 06:56] LABS: Anion Gap 9 (5-15); BUN 8 mg/dL (7-18); BUN/Creat Ratio 11.1 RATIO (10-20); Calcium,Total 7.8 mg/dL (8.5-10.1); Chloride 102 mmol/L (98-107); Creatinine, Serum 0.72 mg/dL (0.70-1.30); EST Glomerular Filtration Rate 116 mL/min (>60); Est Glom Filt Rate - Afr Amer 140 mL/min (>60); Estimated Creatinine Clearance 67.94 ml/min; Glucose 167 mg/dL (74-106); Potassium 3.8 mmol/L (3.5-5.1); Sodium Level 135 mmol/L (136-145)
[2021-03-21 06:56] LABS: Bedside Glucose 165 mg/dL (70-110)
[2021-03-21] MEDS: Aspirin 81 MG TAB.CHEW PO (09:45)
[2021-03-21] MEDS: Omega-3 Acid Ethyl Esters 1 GM Capsule PO (09:45)
[2021-03-21] MEDS: amLODIPine 10 MG Tablet PO (09:45)
[2021-03-21] MEDS: Fenofibrate 145 MG Tablet PO (09:45)
[2021-03-21] MEDS: Enoxaparin 40 MG/0.4 ML Syringe SC (09:45)
[2021-03-21] MEDS: Lisinopril 10 MG Tablet PO (09:45)
[2021-03-21] MEDS: Ketorolac 15 MG/ML Vial IV (11:25)
[2021-03-21 11:35] LABS: Bedside Glucose 201 mg/dL (70-110)
--- NOTE | 2021-03-21 11:43 | PN.ORTHO_ITS ---
Subjective Subjective Patient seen and examined. States his pain is much improved compared to prior to surgery. He is up to the chair today. He states he has been ambulating with a front wheel walker. States that shooting pain in his leg has resolved. Urinating without difficulty. Tolerating oral intake without nausea or vomiting. Positive flatus but no bowel movement since admission. Denies fevers, chills, chest pain or shortness of breath. Objective Data Objective Data Vital Signs: Vital Signs Temp Pulse Resp BP Pulse Ox 98.7 F 89 16 150/86 H 96 03/21/21 09:30 03/21/21 09:59 03/21/21 09:30 03/21/21 09:59 03/21/21 09:30 Oxygen Flow Rate (L/min) 2 Oxygen Delivery Method Room Air Weight: 198 lb 6.656 oz Body Mass Index (BMI) 32.1 Intake & Output: Intake and Output for Last 24 Hours 03/19/21 03/20/21 03/21/21 23:59 23:59 23:59 Intake Total 3260.00 / 3260.00 4465.42 / 4465.42 944.58 / 944.58 Output Total 2150 / 2150 2200 / 2200 700 / 700 Balance 1110.00 / 1110.00 2265.42 / 2265.42 244.58 / 244.58 Lab / Micro Data Result Diagrams: 03/21/21 05:45 03/21/21 05:45 Labs: Laboratory Results - last 24 hr 03/20/21 11:59: POC Glucose 154 H 03/20/21 16:23: POC Glucose 152 H 03/20/21 21:26: POC Glucose 212 H 03/21/21 05:45: WBC 5.0, RBC 4.14 L, Hgb 12.1 L, Hct 36.2 L, MCV 87.4, MCH 29.2, MCHC 33.4, RDW Std Deviation 39.8, RDW Coeff of Carri 12.4, Plt Count 154, MPV 9.7, Immature Gran % (Auto) 0.400, Neut % (Auto) 70.6 H, Lymph % (Auto) 17.1 L, [place] % (Auto) 11.5 H, Eos % (Auto) 0.2, Baso % (Auto) 0.2, Absolute Neuts (auto) 3.6, Absolute Lymphs (auto) 0.86, Nucleated RBC % 0 03/21/21 05:45: Sodium 135 L, Potassium 3.8, Chloride 102, Carbon Dioxide 24.0, Anion Gap 9, BUN 8, Creatinine 0.72, Estim Creat Clear Calc 67.94, Est GFR (MDRD) Af Amer 140, Est GFR (MDRD) Non-Af 116, BUN/Creatinine Ratio 11.1, Glucose 167 H, Calcium 7.8 L 03/21/21 06:45: POC Glucose 165 H 03/21/21 11:29: POC Glucose 201 H Micro: Microbiology 03/18/21 16:17 Nasal Secretion SARS-CoV-2 Antigen (Rapid) - Final Physical Exam Narrative General - A&Ox3, NAD. VSS/AF Right lower extremity -incisional dressing C/D/I. SILT Sural, Saphenous, SPN, DPN, Tibial N. distributions. DP, PT 2+. BCR. DF, PF, EHL 5/5. No calf TTP. Assessment & Plan Assessment/Plan (1) Nondisplaced intertrochanteric fracture of right femur: QUALIFIERS: Encounter type: initial encounter Fracture type: closed Qualified Code(s): S72.144A - Nondisplaced intertrochanteric fracture of right femur, initial encounter for closed fracture PLAN: POD#1 s/p right femur cephalomedullary nailing - Pain control -Medical management per primary - PT/OT-weightbearing as tolerated right lower extremity - DVT PPX -Lovenox in the hospital. I would recommend at least 325 mg aspirin twice daily upon discharge, I will defer to primary if they feel true anticoagulation is necessary such as Lovenox. -Patient stable for discharge from my standpoint. He may remove postop dressings on 03/23/2021 and shower. If no drainage, okay to leave incisions open to air. Plan to follow-up with me in 2-3 weeks for x-rays and staple removal. No driving until follow-up with me. Please call if any questions or concerns arise.
--- NOTE | 2021-03-21 12:03 | PCM.DC ---
Discharge Instructions Diet Discharge Diet: Low fat / Low cholesterol and 1800 Calorie Control Diet Activity Discharge Activity: May Not Drive (Until follow up with Dr. Doyle in office) and May Shower (03/23/2021) Weight Bearing Status: Weight bearing as tolerated Dressing / Incision Call your doctor if your incision/area has: Continuous Slow Oozing, Sudden Increased Bleeding, Increased Pain/ Swelling, Increased Redness, Foul Smelling Discharge and Swelling at the incision site Remove Dressing in: 2 days Follow Up Care Test Results: Test results from this visit will be discussed in further detail at your follow-up appointment, if applicable. Discharge Plan Admission Admit Date/Time: 03/18/21 15:50 Primary Reason for Your Visit: Right hip fracture Attending Provider: Elbert Bell Primary Care Provider: Federico Santoro Consulting Providers: Jakob Tipton ; Real Doyle Discharge Orders/Prescriptions Prescriptions: New acetaminophen [Tylenol] 325 mg Tablet 650 mg PO Q4H PRN PRN (Reason: Fever, pain 1-10) Qty: 0 RF: 0 docusate sodium [DOK] 100 mg Capsule 100 mg PO DAILY PRN PRN (Reason: Constipation) Qty: 0 RF: 0 oxycodone 5 mg Tablet 5 mg PO Q4H PRN PRN (Reason: Pain Score 6-10) 3 Days Qty: 20 RF: 0 aspirin 325 mg tablet 325 mg PO BID Qty: 60 RF: 0 Continued amlodipine 10 mg Tablet 10 mg PO DAILY RF: 0 simvastatin 20 mg Tablet 20 mg PO DAILY RF: 0 metformin 1,000 mg Tablet 1,000 mg PO BID RF: 0 diphenhydramine HCl 25 mg Tablet 50 mg PO QHS RF: 0 pioglitazone 30 mg Tablet 30 mg PO DAILY RF: 0 glipizide 5 mg Tablet 5 mg PO BID RF: 0 ramipril 10 mg Capsule 10 mg PO DAILY RF: 0 omega-3 fatty acids Capsule 1,000 mg PO BID RF: 0 fenofibrate 160 mg Tablet 160 mg PO DAILY RF: 0 Januvia 100 mg Tablet 100 mg PO DAILY RF: 0 cholecalciferol (vitamin D3) [Vitamin D3] 125 mcg (5,000 unit) Tablet 175 mcg PO DAILY RF: 0 DHEA 10 mg-47 mg calcium Tablet 0.5 tab PO DAILY RF: 0 Farxiga 10 mg Tablet 10 mg PO DAILY RF: 0 niacin 500 mg Capsule 500 mg PO QHS RF: 0 Trulicity 0.75 mg/0.5 mL Pen Injector 0.75 mg SUBCUT QWEEK RF: 0 Referrals / Follow Up: Federico Santoro MD [Primary Care Provider] - Real Doyle DO [STAFF PHYSICIAN] - 04/06/21 Disposition Disposition (needs filled in before D/C Order can be placed): Home Health Service
--- NOTE | 2021-03-21 12:21 | DS.PCM_ITS ---
Documented by User: KAREN Curry 03/21/21 12:25 Providers Date of Admission: 03/18/21 Primary Care Physician: Dr. Federico Santoro MD Consultations 03/18/21 18:31 Consult: Cardiology Routine Consulting Provider: Jakob Tipton Reason for Consult: Cardiac arrest, possibly vasovagal after morphine/pain EMERGENT Consult: No MD Notified: Yes Date Notified: 03/18/21 Time Notified: 15:54 Method of Notification: called per ED. Consult: Orthopedics Routine Consulting Provider: Real Doyle Reason for Consult: s/p fall in racketball, R intractable upper thigh, lower groin pain. EMERGENT Consult: No MD Notified: Yes Date Notified: 03/18/21 Time Notified: 17:57 Method of Notification: called Reason For Visit: CARDIAC ARREST Diagnosis Discharge Diagnosis (1) Nondisplaced intertrochanteric fracture of right femur: Status: Acute Code(s): S72.144A - Nondisplaced intertrochanteric fracture of right femur, initial encounter for closed fracture Qualifiers: Encounter type: initial encounter Fracture type: closed Qualified Code(s): S72.144A - Nondisplaced intertrochanteric fracture of right femur, initial encounter for closed fracture Medications at Discharge Home Medications DHEA 0.5 tab PO DAILY 03/18/21 Farxiga 10 mg PO DAILY 03/18/21 Januvia 100 mg PO DAILY 03/18/21 Trulicity 0.75 mg SUBCUT QWEEK 03/18/21 amlodipine 10 mg PO DAILY 03/18/21 cholecalciferol (vitamin D3) [Vitamin D3] 175 mcg PO DAILY 03/18/21 diphenhydramine HCl 50 mg PO QHS 03/18/21 fenofibrate 160 mg PO DAILY 03/18/21 glipizide 5 mg PO BID 03/18/21 metformin 1,000 mg PO BID 03/18/21 niacin 500 mg PO QHS 03/18/21 omega-3 fatty acids 1,000 mg PO BID 03/18/21 pioglitazone 30 mg PO DAILY 03/18/21 ramipril 10 mg PO DAILY 03/18/21 simvastatin 20 mg PO DAILY 03/18/21 acetaminophen [Tylenol] 650 mg PO Q4H PRN PRN #0 tab 03/21/21 aspirin 325 mg PO BID #60 tab 03/21/21 docusate sodium [DOK] 100 mg PO DAILY PRN PRN #0 cap 03/21/21 oxycodone 5 mg PO Q4H PRN PRN 3 Days #20 tab 03/21/21 Hospital Course Operations - (Right hip repair) Procedures 2-D Echocardiogram Summary of Care Provided Minutes Spent on Discharge: 35 Hospital Course: Patient is a 65-year-old male who originally presented to the ER with right hip and groin pain following a fall. Patient had x-ray and CT of right hip was negative for fracture however MRI was ordered to evaluate for soft tissue damage and a nondisplaced right intertrochanteric fracture was noted. Patient underwent a right intertrochanteric nailing with Dr. Doyle on 03/20/2021 and is doing well. Patient will be sent home with oxycodone for pain management as well as aspirin for DVT prophylaxis. Initially when patient was seen in the ER and was having severe pain in the right hip patient was noted to have a bradycardic cardiac arrest. Patient was evaluated by cardiology and it was determined that likely patient had a vasovagal response to pain along with the administration of morphine and was the source of his bradycardic cardiac arrest. Patient has not had any further episodes of vasovagal syncope since initial episode in ER. Patient will be discharged with a prescription for a toilet riser as well. Patient will be set up with home health on Tuesday for PT and OT at the request of his and the patient. Physical Exam Const alert, oriented x3 and no apparent distress HEENT head/scalp atraumatic Eyes conjunctivae normal and no scleral icterus Neck full ROM and supple General: trachea midline Resp normal respiratory effort, normal air movement and clear to auscultation bilaterally Effort and Inspection: able to speak in complete sentences and symmetric chest movement Cardio regular rate, regular rhythm, S1 normal heart sound and S2 normal heart sound GI normal to inspection, nondistended, normoactive bowel sounds, soft to palpation and non-tender Extremity normal capillary refill and no clubbing, cyanosis or edema Right Lower Extremity: hip joint palpation (Tender to anterior and lateral aspects of the right hip), ROM (Limited due to pain) and neurovascular exam (Intact) and upper leg Skin no rashes or lesions noted, no wounds and skin turgor normal Skin Narrative: Surgical dressing to right leg dry and intact, no visualization of incision at this time Neuro oriented x3, moves all extremities, no focal motor deficits and no sensory d eficits noted Sensorium / Orientation: awake and alert Psych affect normal Weight / BMI Weight Weight: 198 lb 6.656 oz Body Mass Index (BMI) 32.1 ABG / Lab / Microbiology Data Result Diagrams: 03/21/21 05:45 03/21/21 05:45 Laboratory: Laboratory Results - last 24 hr 03/20/21 16:23: POC Glucose 152 H 03/20/21 21:26: POC Glucose 212 H 03/21/21 05:45: WBC 5.0, RBC 4.14 L, Hgb 12.1 L, Hct 36.2 L, MCV 87.4, MCH 29.2, MCHC 33.4, RDW Std Deviation 39.8, RDW Coeff of Carri 12.4, Plt Count 154, MPV 9.7, Immature Gran % (Auto) 0.400, Neut % (Auto) 70.6 H, Lymph % (Auto) 17.1 L, [place] % (Auto) 11.5 H, Eos % (Auto) 0.2, Baso % (Auto) 0.2, Absolute Neuts (auto) 3.6, Absolute Lymphs (auto) 0.86, Nucleated RBC % 0 03/21/21 05:45: Sodium 135 L, Potassium 3.8, Chloride 102, Carbon Dioxide 24.0, Anion Gap 9, BUN 8, Creatinine 0.72, Estim Creat Clear Calc 67.94, Est GFR (MDRD) Af Amer 140, Est GFR (MDRD) Non-Af 116, BUN/Creatinine Ratio 11.1, Glucose 167 H, Calcium 7.8 L 03/21/21 06:45: POC Glucose 165 H 03/21/21 11:29: POC Glucose 201 H Microbiology: Microbiology 03/18/21 16:17 Nasal Secretion SARS-CoV-2 Antigen (Rapid) - Final D/C Instructions Discharge Diet: Low fat / Low cholesterol and 1800 Calorie Control Diet Weight Bearing Status: Weight bearing as tolerated Call your doctor if your incision/area has: Continuous Slow Oozing, Sudden Increased Bleeding, Increased Pain/ Swelling, Increased Redness, Foul Smelling Discharge and Swelling at the incision site Meaningful Use Info Meaningful Use Diagnoses (Choose all that apply): None applicable Discharge Plan Admission Admit Date/Time: 03/18/21 15:50 Primary Reason for Your Visit: Right hip fracture Attending Provider: Elbert Bell Primary Care Provider: Federico Santoro Consulting Providers: Jakob Tipton ; Real Doyle Instructions Additional Instructions / Restrictions: Patient Problems: Altered Health Status related to Hospitalization Patient Goals: *Optimal Level of Health *Keep Appointments *Medication Compliance *Remain Safe Discharge Orders/Prescriptions Prescriptions: New acetaminophen [Tylenol] 325 mg Tablet 650 mg PO Q4H PRN PRN (Reason: Fever, pain 1-10) Qty: 0 RF: 0 docusate sodium [DOK] 100 mg Capsule 100 mg PO DAILY PRN PRN (Reason: Constipation) Qty: 0 RF: 0 oxycodone 5 mg Tablet 5 mg PO Q4H PRN PRN (Reason: Pain Score 6-10) 3 Days Qty: 20 RF: 0 aspirin 325 mg tablet 325 mg PO BID Qty: 60 RF: 0 Continued amlodipine 10 mg Tablet 10 mg PO DAILY RF: 0 simvastatin 20 mg Tablet 20 mg PO DAILY RF: 0 metformin 1,000 mg Tablet 1,000 mg PO BID RF: 0 diphenhydramine HCl 25 mg Tablet 50 mg PO QHS RF: 0 pioglitazone 30 mg Tablet 30 mg PO DAILY RF: 0 glipizide 5 mg Tablet 5 mg PO BID RF: 0 ramipril 10 mg Capsule 10 mg PO DAILY RF: 0 omega-3 fatty acids Capsule 1,000 mg PO BID RF: 0 fenofibrate 160 mg Tablet 160 mg PO DAILY RF: 0 Januvia 100 mg Tablet 100 mg PO DAILY RF: 0 cholecalciferol (vitamin D3) [Vitamin D3] 125 mcg (5,000 unit) Tablet 175 mcg PO DAILY RF: 0 DHEA 10 mg-47 mg calcium Tablet 0.5 tab PO DAILY RF: 0 Farxiga 10 mg Tablet 10 mg PO DAILY RF: 0 niacin 500 mg Capsule 500 mg PO QHS RF: 0 Trulicity 0.75 mg/0.5 mL Pen Injector 0.75 mg SUBCUT QWEEK RF: 0 Referrals / Follow Up: Federico Santoro MD [Primary Care Provider] - Real Doyle DO [STAFF PHYSICIAN] - 04/06/21 Disposition Disposition (needs filled in before D/C Order can be placed): Home Health S ervice Documented by User: Dr. Elbert Bell DO 03/22/21 18:56 Providers Date of Admission: 03/18/21 Reason For Visit: CARDIAC ARREST Medications at Discharge Home Medications DHEA 0.5 tab PO DAILY 03/18/21 Farxiga 10 mg PO DAILY 03/18/21 Januvia 100 mg PO DAILY 03/18/21 Trulicity 0.75 mg SUBCUT QWEEK 03/18/21 amlodipine 10 mg PO DAILY 03/18/21 cholecalciferol (vitamin D3) [Vitamin D3] 175 mcg PO DAILY 03/18/21 diphenhydramine HCl 50 mg PO QHS 03/18/21 fenofibrate 160 mg PO DAILY 03/18/21 glipizide 5 mg PO BID 03/18/21 metformin 1,000 mg PO BID 03/18/21 niacin 500 mg PO QHS 03/18/21 omega-3 fatty acids 1,000 mg PO BID 03/18/21 pioglitazone 30 mg PO DAILY 03/18/21 ramipril 10 mg PO DAILY 03/18/21 simvastatin 20 mg PO DAILY 03/18/21 acetaminophen [Tylenol] 650 mg PO Q4H PRN PRN #0 tab 03/21/21 aspirin 325 mg PO BID #60 tab 03/21/21 docusate sodium [DOK] 100 mg PO DAILY PRN PRN #0 cap 03/21/21 oxycodone 5 mg PO Q4H PRN PRN 3 Days #20 tab 03/21/21 ABG / Lab / Microbiology Data Result Diagrams: 03/21/21 05:45 03/21/21 05:45 Discharge Plan Admission Admit Date/Time: 03/18/21 15:50 Primary Reason for Your Visit: Right hip fracture Attending Provider: Elbert Bell Primary Care Provider: Federico Santoro Consulting Providers: Jakob Tipton ; Real Doyle Instructions Additional Instructions / Restrictions: Patient Problems: Altered Health Status related to Hospitalization Patient Goals: *Optimal Level of Health *Keep Appointments *Medication Compliance *Remain Safe Discharge Orders/Prescriptions Prescriptions: New acetaminophen [Tylenol] 325 mg Tablet 650 mg PO Q4H PRN PRN (Reason: Fever, pain 1-10) Qty: 0 RF: 0 docusate sodium [DOK] 100 mg Capsule 100 mg PO DAILY PRN PRN (Reason: Constipation) Qty: 0 RF: 0 oxycodone 5 mg Tablet 5 mg PO Q4H PRN PRN (Reason: Pain Score 6-10) 3 Days Qty: 20 RF: 0 aspirin 325 mg tablet 325 mg PO BID Qty: 60 RF: 0 Continued amlodipine 10 mg Tablet 10 mg PO DAILY RF: 0 simvastatin 20 mg Tablet 20 mg PO DAILY RF: 0 metformin 1,000 mg Tablet 1,000 mg PO BID RF: 0 diphenhydramine HCl 25 mg Tablet 50 mg PO QHS RF: 0 pioglitazone 30 mg Tablet 30 mg PO DAILY RF: 0 glipizide 5 mg Tablet 5 mg PO BID RF: 0 ramipril 10 mg Capsule 10 mg PO DAILY RF: 0 omega-3 fatty acids Capsule 1,000 mg PO BID RF: 0 fenofibrate 160 mg Tablet 160 mg PO DAILY RF: 0 Januvia 100 mg Tablet 100 mg PO DAILY RF: 0 cholecalciferol (vitamin D3) [Vitamin D3] 125 mcg (5,000 unit) Tablet 175 mcg PO DAILY RF: 0 DHEA 10 mg-47 mg calcium Tablet 0.5 tab PO DAILY RF: 0 Farxiga 10 mg Tablet 10 mg PO DAILY RF: 0 niacin 500 mg Capsule 500 mg PO QHS RF: 0 Trulicity 0.75 mg/0.5 mL Pen Injector 0.75 mg SUBCUT QWEEK RF: 0 Referrals / Follow Up: Federico Santoro MD [Primary Care Provider] - Real Doyle DO [STAFF PHYSICIAN] - 04/06/21 Disposition Disposition (needs filled in before D/C Order can be placed): Home Health Service Charges/Coding Addendum Addendum: Patient was seen and examined today independently of Nanda Aceves, he would like to be discharged home if possible, he feels that he can perform ADLs at home. On examination he appeared in good health and spirits. Vital signs as documented. Skin warm and dry and without overt rashes. Neck without JVD, neck was supple, trachea midline, thyroid was normal. Lungs clear bilaterally, normal air movement was noted. Heart exam notable for regular rhythm, normal sounds and absence of murmurs, rubs or gallops. Abdomen unremarkable and without evidence of organomegaly, masses, or abdominal aortic enlargement. Bowel sounds are pre sent, abdomen is not distended. Extremities nonedematous, no cyanosis was noted, no clubbing was noted. Neuro: Cranial nerves II through XII are grossly intact, no focal motor deficits were noted, sensation to light touch and pinprick intact, motor exam 5/5 throughout. Psych: Patient is alert and oriented x3, he does not appear anxious or depressed, he does not appear agitated. Assessment #1 nondisplaced intertrochanteric fracture of the right femur-postop day #1 intramedullary nail right femur-patient will continue physical therapy as an outpatient and follow-up with orthopedic surgery #2 symptomatic bradycardia secondary to pain-patient has not had another episode since he has been admitted to the hospital here, pain meds will be given to the patient for home use There is no evidence for cardiac arrest in this patient per cardiology. I have reviewed Nanda Aceves's discharge summary including her medical assessment and plan of care and with the above additions endorse it. Visit Charges Inpatient E&M: 91311 Disch Hosp
--- NOTE | 2021-03-23 09:46 | CASEMGMT ---
Call back from Chloe at [facility] and she states they can do SOC on 03/25/21 and pt is agreeable. Jose D STEELE CM
== END 2021-03-21 13:46 | disposition home health service (06) | DRG 480 ==
LOC: ED 14:58 → PCU 16:23
PROVIDERS: Anesthesiology; Nurse Practitioner Family; Student in an Organized Health Care Education/Training Program; Admitting Provider Family Medicine; Emergency Provider Emergency Medicine; Visit Provider Internal Medicine
PROC: 0QS636Z Reposition Right Upper Femur with Intramedullary Internal Fixation Device, Percutaneous Approach (ICD-10-PCS; CPT 27245; principal; 2021-03-20 07:00)
DX: S72.144A Nondisplaced intertrochanteric fracture of right femur, initial encounter for closed fracture (principal); I46.8 Cardiac arrest due to other underlying condition; K56.609 Unspecified intestinal obstruction, unspecified as to partial versus complete obstruction; W01.0XXA Fall on same level from slipping, tripping and stumbling without subsequent striking against object, initial encounter; Y93.73 Activity, racquet and hand sports; Y92.9 Unspecified place or not applicable; R00.1 Bradycardia, unspecified; T40.2X5A Adverse effect of other opioids, initial encounter; Y92.239 Unspecified place in hospital as the place of occurrence of the external cause; E11.9 Type 2 diabetes mellitus without complications; E78.00 Pure hypercholesterolemia, unspecified; E78.5 Hyperlipidemia, unspecified; E86.0 Dehydration; G89.29 Other chronic pain; M54.50 Low back pain, unspecified; Z79.84 Long term (current) use of oral hypoglycemic drugs; Z79.899 Other long term (current) drug therapy
CPT/HCPCS: 36415; 71045; 73501; 73502; 73721; 74177; 76000; 76770; 80048; 80053; 80061; 81001; 82962; 83036; 83735; 83880; 84484; 85025; 85610; 85730; 86850; 86900; 86901; 87426; 93005; 93306; 97110; 97162; 97167; 97530; 97535; 99251; 99285; C1713; C1776; J7030; Q9967; A4216; G0463; J2310; J2405